=== PATIENT | male | born 1950 | race African-American/Black ===

== ENCOUNTER → 2022-08-29 14:44 | Outpatient (CLI) | payer OTHER, SELFPAY ==
--- NOTE | 2022-08-29 | DI.US.S_ITS ---
PROCEDURE: US ABDOMEN LIMITED INDICATIONS: elevated liver enzymes TECHNIQUE: Real-time focused scanning was performed of the abdomen, with image documentation. COMPARISON: None. FINDINGS: Liver is at the upper limits of normal in size, measuring 16.6 cm with steatosis. Dependent echogenicity is present within the gallbladder lumen. Wall thickness is variable ranging from 1 mm to 5 mm. There is no sonographic Lobo sign. Common bile duct measures 6 mm. IMPRESSION: Areas of echogenicity within the gallbladder consistent with small stones versus sludge. Wall thickening within portions of the gallbladder overall irregular. This is overall specific. While this could be related to developing cholecystitis, hepatic dysfunction can also contribute to appearance of wall thickening and recommend clinical correlation. Dictated by: Magnolia Segura M.D. on 08/29/2022 at 18:29 Approved by: Magnolia Segura M.D. on 08/29/2022 at 18:31
== END ==
PROVIDERS: PCP Family Medicine; Referring Provider Family Medicine; Visit Provider Family Medicine
DX: R74.01 Elevation of levels of liver transaminase levels (principal)
CPT/HCPCS: 76705

== ENCOUNTER → 2022-09-12 12:26 | Outpatient (CLI) | payer OTHER, SELFPAY ==
--- NOTE | 2022-09-12 12:33 | DI.RAD.S_ITS ---
PROCEDURE: XR CHEST 2V INDICATIONS: CHEST TECHNIQUE: 2 views of the chest were acquired. COMPARISON: None. FINDINGS: Surgical changes and devices: None. Lungs and pleura: Lungs are clear. No pleural effusions or pneumothorax. Mediastinum: Mediastinal contours are normal. Heart size is normal. Bones and chest wall: No suspicious bony abnormalities. Soft tissues appear unremarkable. IMPRESSION: No acute cardiopulmonary abnormality identified. Dictated by: Peter Pittman M.D. on 09/12/2022 at 13:46 Approved by: Peter Pittman M.D. on 09/12/2022 at 13:51
[2022-09-12 13:48] LABS: Add Manual Diff / Slide Review NO; Basophils Absolute Auto 100 /uL (0-100); Basophils Percent Auto 0.6 % (0-2); Eosinophils Absolute Auto 100 /uL (0-450); Eosinophils Percent Auto 0.6 % (2-4); Hematocrit 42.8 % (41-53); Hemoglobin 13.7 g/dL (13.5-17.5); Lymphocytes Absolute Auto 2900 /uL (1100-4500); Lymphocytes Percent Auto 27.8 % (25-40); Mean Corpuscular HGB Conc 32.2 % (30-36); Mean Corpuscular Volume 90.3 fL (80-100); Monocytes Absolute Auto 700 /uL (0-900); Monocytes Percent Auto 6.6 % (3-14); Neutrophils Absolute Auto 6700 /uL (1500-7000); Neutrophils Percent Auto 64.4 % (50-75); Platelet Count 150 X10^3/uL (150-400); Red Blood Cell Count 4.73 X10^6/uL (4.5-5.9); Red Cell Distribution Width 16.2 % (11.6-14.8); White Blood Cell Count 10.5 X10^3/uL (4.5-11.0)
[2022-09-12 14:13] LABS: Hemoglobin A1C% w Est Avg Glu 4.9 % (4.0-6.0)
[2022-09-12 14:19] LABS: Alanine Aminotransferase 25 IU/L (<50); Albumin 3.6 g/dL (3.5-5.0); Albumin Globulin Ratio 1.3 (1.0-2.8); Alkaline Phosphatase 104 U/L (38-126); Aspartate Aminotransferase 43 IU/L (17-59); BUN Creatinine Ratio 15.9 (6-22); Bilirubin Total 0.4 mg/dL (0.2-1.3); Blood Urea Nitrogen 13 mg/dL (9-20); Calcium 8.6 mg/dL (8.4-10.2); Carbon Dioxide 20 mmol/L (22-32); Chloride 104 mmol/L (98-107); Estimated Glomerular Filt Rate > 60 mL/min (>60); Globulin 2.7 g/dL (1.7-4.1); Glucose 92 mg/dL (80-110); HEMOLYSIS < 15 (0-50); Potassium 4.1 mmol/L (3.4-5.1); Sodium 139 mmol/L (137-145); Total Protein 6.3 g/dL (6.3-8.2)
[2022-09-12 14:37] LABS: Free T4, Direct Thyroxine 1.39 ng/dL (0.78-2.19)
== END ==
PROVIDERS: PCP Family Medicine; Referring Provider Family Medicine; Visit Provider Family Medicine
DX: I10 Essential (primary) hypertension (principal); E11.65 Type 2 diabetes mellitus with hyperglycemia; E78.00 Pure hypercholesterolemia, unspecified; Z79.899 Other long term (current) drug therapy
CPT/HCPCS: 36415; 71046; 80053; 83036; 84439; 84443; 85025

== ENCOUNTER 2022-11-16 14:05 | Inpatient (IN) | payer OTHER, SELFPAY ==
[2022-11-16] VITALS (30 sets, daily range): BP systolic 117–137; BP diastolic 87–108; PULSE 118–124; RESP 18–34; TEMP 36.2–36.4; O2SAT 93–99
--- NOTE | 2022-11-16 14:29 | DI.RAD.S_ITS ---
PROCEDURE: XR CHEST 1V INDICATIONS: suspected sepsis TECHNIQUE: One view of the chest was acquired. COMPARISON: [facility], CR, XR CHEST 2V, 09/12/2022, 12:46. FINDINGS: Surgical changes and devices: None. Lungs and pleura: Lungs are again seen to demonstrate bilateral interstitial prominence with possible lung base mild pneumonia but this pattern is little if any changed from 09/12/22 considering reduced inspiration on the current study.. No pleural effusions or pneumothorax. Mediastinum: Mediastinal contours appear normal. Heart size is normal. Bones and chest wall: No suspicious bony lesions. Overlying soft tissues appear unremarkable. IMPRESSION: Possible chronic CHF pattern with lung base atelectasis. Alternatively, chronic interstitial prominence with mild or early lung base pneumonia could explain the appearance. Dictated by: Israel Schreiber M.D. on 11/16/2022 at 15:42 Approved by: Israel Schreiber M.D. on 11/16/2022 at 15:43
[2022-11-16] MEDS: SODIUM CHLORIDE 0.9% 1,000 ML 1000 ML IV (14:52)
[2022-11-16 15:30] LABS: Influenza A - CEPHEID Flu A NEGATIVE (NEGATIVE); Influenza B - CEPHEID Flu B NEGATIVE (NEGATIVE); Respiratory Syncytial Virus Negative (Negative)
[2022-11-16 15:33] LABS: COVID-19 CEPHEID 4-PLEX PCR Negative (Negative)
--- NOTE | 2022-11-16 15:34 | PC.NURSE ---
Pt reports voiding every hour on the hour with dribbling and frequency. Pt abdomen is distended and tight to touch. BM's are liquid. Pt also reporting worsening SOB that began on .
[2022-11-16 15:51] LABS: Add Manual Diff / Slide Review NO; Basophils Absolute Auto 100 /uL (0-100); Basophils Percent Auto 1.3 % (0-2); Eosinophils Absolute Auto 100 /uL (0-450); Eosinophils Percent Auto 0.7 % (2-4); Hematocrit 45.9 % (41-53); Hemoglobin 14.6 g/dL (13.5-17.5); Lymphocytes Absolute Auto 2100 /uL (1100-4500); Lymphocytes Percent Auto 24.9 % (25-40); Mean Corpuscular HGB Conc 31.9 % (30-36); Mean Corpuscular Hemoglobin 28.5 PG (26-34); Mean Corpuscular Volume 89.4 fL (80-100); Monocytes Absolute Auto 800 /uL (0-900); Monocytes Percent Auto 9.9 % (3-14); Neutrophils Absolute Auto 5400 /uL (1500-7000); Neutrophils Percent Auto 63.2 % (50-75); Platelet Count 193 X10^3/uL (150-400); Red Blood Cell Count 5.13 X10^6/uL (4.5-5.9); Red Cell Distribution Width 18.3 % (11.6-14.8); White Blood Cell Count 8.6 X10^3/uL (4.5-11.0)
--- NOTE | 2022-11-16 16:01 | PC.NURSE ---
Pt reports not taking medications since early October. When asked why pt states, I don't know. When asked if he had any problems with finances he said, no. Provider aware.
[2022-11-16 16:06] LABS: Creatine Kinase 32 U/L (55-170); Lactate (Lactic Acid) 3.4 mmol/L (0.7-2.1)
[2022-11-16 16:08] LABS: Alanine Aminotransferase 27 IU/L (<50); Albumin 3.9 g/dL (3.5-5.0); Albumin Globulin Ratio 1.3 (1.0-2.8); Alkaline Phosphatase 97 U/L (38-126); Aspartate Aminotransferase 30 IU/L (17-59); Bilirubin Total 1.3 mg/dL (0.2-1.3); Blood Urea Nitrogen 18 mg/dL (9-20); Calcium 9.4 mg/dL (8.4-10.2); Carbon Dioxide 19 mmol/L (22-32); Chloride 106 mmol/L (98-107); Estimated Glomerular Filt Rate > 60 mL/min (>60); Globulin 2.9 g/dL (1.7-4.1); Glucose 112 mg/dL (80-110); HEMOLYSIS 17 (0-50); Lipase 71 U/L (23-300); Sodium 139 mmol/L (137-145); Total Protein 6.8 g/dL (6.3-8.2)
[2022-11-16 16:20] LABS: NT-proBNP (BNP-Adult 18+) 14600 pg/mL (<125); Troponin I 0.012 ng/mL (0.01-0.034)
[2022-11-16 16:24] LABS: Procalcitonin 0.06 ng/mL (<0.5)
[2022-11-16 16:59] LABS: INR 1.3 (0.9-1.3)
[2022-11-16 17:02] LABS: PTT Partial Thromboplastin Tim 30 SECONDS (26-36)
--- NOTE | 2022-11-16 17:07 | ED.SOB ---
HPI - SOB/Dyspnea General Chief Complaint: Shortness of Breath/Dyspnea Stated Complaint: SOB/dizzy/ t-14 getting worse Time Seen by Provider: 11/16/22 16:04 Source: patient Mode of arrival: Ambulatory Limitations: no limitations History of Present Illness HPI Narrative: Patient is a 72-year-old male who presents with increased difficulty breathing. He denies any history of congestive heart failure by on his current med list is Lasix 20 mg, tamsulosin and fluoxetine. He says over last few days he is had increasing shortness of breath with exertion. Denies any orthopnea. He denies any chest pain although says that he has heart palpitations and flip-flopping in his chest. He feels like his feet are swollen although I do not appreciate any obvious pitting edema. His heart rate is noted to be quite fast 120 pretty steady. He denies any fever chills or cough. He is not passed out. He is not been to this hospital before. Related Data Home Medications Medication Instructions Recorded Confirmed alprazolam 0.25 mg tablet 0.25 mg PO Q8HP PRN ##0 03/02/17 aspirin 81 mg tablet,delayed 81 mg PO QDAY ##0 03/02/17 release cyclobenzaprine 10 mg tablet 10 mg PO QDAY ##0 03/02/17 fluoxetine 40 mg capsule 20 mg PO QDAY ##0 03/02/17 gabapentin 300 mg capsule 300 mg PO TID ##0 03/02/17 (Neurontin) halobetasol propionate 0.05 % 1 russ TP ##0 03/02/17 topical ointment hydrochlorothiazide 25 mg tablet 25 mg PO QDAY ##0 03/02/17 losartan 50 mg tablet 50 mg PO QDAY ##0 03/02/17 metformin 500 mg tablet,extended 500 mg PO QDAY ##0 03/02/17 release 24 hr (Glucophage XR) metoprolol tartrate 50 mg tablet 50 mg PO QDAY ##0 03/02/17 miconazole nitrate 2 % topical 1 russ TP ##0 03/02/17 cream (Micatin) omeprazole 20 mg capsule,delayed 20 mg PO QDAY ##0 03/02/17 release oxycodone-acetaminophen 7.5 mg-325 1 tab PO Q4HP PRN ##0 03/02/17 mg tablet simvastatin 10 mg tablet 10 mg PO QDAY ##0 03/02/17 Allergies Allergy/AdvReac Type Severity Reaction Status Date / Time Penicillins Allergy Unknown Verified 11/16/22 14:27 Patient History Social History Smoking Status: Former smoker Smoking Status: Former smoker alcohol intake frequency: 0-2 drinks per day Substance Use Type: does not use Exam Initial Vital Signs Initial Vital Signs: Vital Signs Temperature 97.1 F L 11/16/22 14:20 Pulse Rate 124 H 11/16/22 14:20 Respiratory Rate 34 H 11/16/22 14:20 Blood Pressure 117/87 11/16/22 14:20 Pulse Oximetry 94 11/16/22 14:20 Oxygen Delivery Method 11/16/22 14:20 GENERAL: Alert very pleasant 72-year-old male and in no acute distress. HEENT: Head atraumatic,EOMI, pupils reactive, face symmetric, moist mucous membranes CARDIOVASCULAR: Regular tachycardic no murmur RESPIRATORY: Breath sounds equal bilaterally, no wheezes rales or rhonchi. ABDOMEN: Soft, nontender. Normoactive bowel sounds all 4 quadrants. No guarding or rebound. EXTREMITIES: Normal range of motion, no clubbing or edema. Neurovascularly intact NEUROLOGICAL: Alert and oriented x4. SKIN: Warm, dry, no laceration, no petechiae, no rashes or lesions. Course Orders Ordered: ED Orders 11/16/22 14:29 XR chest 1V Stat RT Consult Eval and Treat NOW 11/16/22 14:43 EKG-12 Lead Stat 11/16/22 14:48 Covid-19 + FLU A/B + RSV - PCR Stat 11/16/22 15:16 COVID19 -Nasal RAPID/Pre-Proc Stat 11/16/22 15:36 BNP [NT-proBNP (BNP-Adult 18+)] Stat Complete Blood Count AUTO DIFF Stat Comprehensive Metabolic Panel Stat Lactate (Lactic Acid) Stat Lipase Stat Partial Thromboplastin Time Stat Procalcitonin Stat Prothrombin Time INR Stat Troponin & CK Cardiac Panel Stat 11/16/22 15:45 Blood Culture Stat 11/16/22 16:13 Ictotest Urine Stat Urine Culture Stat Urine Microscopic Stat Ondansetron HCl (Ondansetron 4 Mg/2 Ml Inj) 4 mg IV NOW PRN PRN Reason: Nausea And Vomiting Ondansetron HCl (Ondansetron 4 Mg Odt) 4 mg SL NOW PRN PRN Reason: Nausea And Vomiting Discontinued Medications Furosemide (Furosemide 40 Mg/4 Ml Vial) 20 mg IV NOW ONE Stop: 11/16/22 17:09 Last Admin: 11/16/22 17:22 Dose: 20 mg Documented By: SELENA Sodium Chloride (Normal Saline 0.9%) 1,000 mls @ 1,000 mls/hr IV BOLUS ONE Stop: 11/16/22 15:28 Last Infusion: 11/16/22 16:32 Dose: 0 mls/hr Documented By: Admin: 11/16/22 14:52 Dose: 1,000 mls/hr Documented By: FIORELLA Metoprolol Tartrate (Metoprolol Tartrate 5 Mg/5 Ml Inj) 5 mg IV NOW ONE Stop: 11/16/22 17:08 Last Admin: 11/16/22 17:22 Dose: 5 mg Documented By: SELENA Vital Signs Vital signs: Vital Signs - 8 hr 11/16/22 14:20 11/16/22 14:40 11/16/22 15:10 Temperature 97.1 F L Pulse Rate 124 H 122 H 120 H Respiratory Rate 34 H Blood Pressure 117/87 Pulse Oximetry 94 96 97 Oxygen Delivery Method Room Air Room Air Room Air 11/16/22 15:15 11/16/22 15:50 11/16/22 16:00 Temperature Pulse Rate 121 H 122 H 122 H Respiratory Rate Blood Pressure 133/97 H Pulse Oximetry 98 99 98 Oxygen Delivery Method Room Air Room Air 11/16/22 14:45 11/16/22 14:50 11/16/22 14:55 Temperature Pulse Rate 120 H 120 H 120 H Respiratory Rate Blood Pressure Pulse Oximetry 97 98 99 Oxygen Delivery Method Room Air Room Air Room Air 11/16/22 15:00 11/16/22 15:05 11/16/22 15:25 Temperature Pulse Rate 120 H 120 H 122 H Respiratory Rate Blood Pressure Pulse Oximetry 99 98 98 Oxygen Delivery Method Room Air Room Air 11/16/22 16:10 11/16/22 16:20 11/16/22 16:44 Temperature Pulse Rate 124 H 122 H Respiratory Rate Blood Pressure 137/106 H Pulse Oximetry 97 96 Oxygen Delivery Method Room Air Room Air 11/16/22 16:44 11/16/22 17:00 11/16/22 17:03 Temperature Pulse Rate 122 H 121 H 121 H Respiratory Rate 30 H 25 H 25 H Blood Pressure Pulse Oximetry 98 99 98 Oxygen Delivery Method Room Air Room Air Room Air 11/16/22 17:03 11/16/22 17:30 11/16/22 17:31 Temperature Pulse Rate 120 H 120 H Respiratory Rate 21 24 Blood Pressure 132/108 H Pulse Oximetry 97 97 Oxygen Delivery Method Room Air Room Air 11/16/22 17:31 11/16/22 18:27 11/16/22 18:30 Temperature Pulse Rate 120 H 120 H Respiratory Rate 24 Blood Pressure 123/99 H Pulse Oximetry Oxygen Delivery Method 11/16/22 18:52 11/16/22 18:52 11/16/22 19:00 Temperature Pulse Rate 120 H Respiratory Rate 24 Blood Pressure 134/94 H 133/106 H Pulse Oximetry 99 Oxygen Delivery Method Room Air 11/16/22 19:00 11/16/22 19:30 11/16/22 19:34 Temperature Pulse Rate 118 H 119 H 119 H Respiratory Rate 20 20 18 Blood Pressure Pulse Oximetry 98 97 96 Oxygen Delivery Method Room Air Room Air Room Air 11/16/22 19:34 11/16/22 20:00 Temperature Pulse Rate 120 H Respiratory Rate Blood Pressure 122/98 H Pulse Oximetry 99 Oxygen Delivery Method Room Air MDM - SOB/Dyspnea Lab Data Result diagrams: 11/16/22 15:36 11/16/22 15:36 Labs: Lab Results 11/16/22 11/16/22 11/16/22 Range/Units 14:48 15:36 15:36 WBC 8.6 (4.5-11.0) X10^3/uL RBC 5.13 (4.5-5.9) X10^6/uL Hgb 14.6 (13.5-17.5) g/dL Hct 45.9 (41-53) % MCV 89.4 (80-100) fL MCH 28.5 (26-34) PG MCHC 31.9 (30-36) % RDW 18.3 H (11.6-14.8) % Plt Count 193 (150-400) X10^3/uL Neut % (Auto) 63.2 (50-75) % Lymph % (Auto) 24.9 L (25-40) % [place] % (Auto) 9.9 (3-14) % Eos % (Auto) 0.7 L (2-4) % Baso % (Auto) 1.3 (0-2) % Neut # (Auto) 5400 (0524-8942) /uL Lymph # (Auto) 2100 (9752-0839) /uL [place] # (Auto) 800 (0-900) /uL Eos # (Auto) 100 (0-450) /uL Baso # (Auto) 100 (0-100) /uL PT 15.0 H (10.1-12.7) SECONDS INR 1.3 (0.9-1.3) APTT 30 (26-36) SECONDS Sodium (137-145) mmol/L Potassium (3.4-5.1) mmol/L Chloride (98-107) mmol/L Carbon Dioxide (22-32) mmol/L BUN (9-20) mg/dL Creatinine (0.66-1.25) mg/dL Estimated GFR (>60) mL/min BUN/Creatinine Ratio (6-22) Glucose (80-110) mg/dL Lactate (0.7-2.1) mmol/L Calcium (8.4-10.2) mg/dL Total Bilirubin (0.2-1.3) mg/dL AST (17-59) IU/L ALT (<50) IU/L Alkaline Phosphatase (38-126) U/L Total Creatine Kinase (55-170) U/L CK-MB (CK-2) CK-MB (CK-2) Rel Index Troponin I (0.01-0.034) ng/mL NT-Pro-B Natriuret Pep (<125) pg/mL Total Protein (6.3-8.2) g/dL Albumin (3.5-5.0) g/dL Globulin (1.7-4.1) g/dL Albumin/Globulin Ratio (1.0-2.8) Lipase (23-300) U/L Procalcitonin (<0.5) ng/mL Ur Bilirubin Confirm (Negative) Urine RBC (0-5/HPF) Urine WBC (0-5/HPF) Urine Bacteria (None) Hyaline Casts (None) Urine Mucus (Negative) SARS-CoV-2 (PCR) Negative (Negative) Influenza A (RT-PCR) Flu a negative (NEGATIVE) Influenza B (RT-PCR) Flu b negative (NEGATIVE) RSV (PCR) Negative (Negative) 11/16/22 11/16/22 11/16/22 Range/Units 15:36 15:36 15:36 WBC (4.5-11.0) X10^3/uL RBC (4.5-5.9) X10^6/uL Hgb (13.5-17.5) g/dL Hct (41-53) % MCV (80-100) fL MCH (26-34) PG MCHC (30-36) % RDW (11.6-14.8) % Plt Count (150-400) X10^3/uL Neut % (Auto) (50-75) % Lymph % (Auto) (25-40) % [place] % (Auto) (3-14) % Eos % (Auto) (2-4) % Baso % (Auto) (0-2) % Neut # (Auto) (2505-6614) /uL Lymph # (Auto) (8333-4426) /uL [place] # (Auto) (0-900) /uL Eos # (Auto) (0-450) /uL Baso # (Auto) (0-100) /uL PT (10.1-12.7) SECONDS INR (0.9-1.3) APTT (26-36) SECONDS Sodium 139 (137-145) mmol/L Potassium 4.0 (3.4-5.1) mmol/L Chloride 106 (98-107) mmol/L Carbon Dioxide 19 L (22-32) mmol/L BUN 18 (9-20) mg/dL Creatinine 0.72 (0.66-1.25) mg/dL Estimated GFR > 60 (>60) mL/min BUN/Creatinine Ratio 25.0 H (6-22) Glucose 112 H (80-110) mg/dL Lactate 3.4 H (0.7-2.1) mmol/L Calcium 9.4 (8.4-10.2) mg/dL Total Bilirubin 1.3 (0.2-1.3) mg/dL AST 30 (17-59) IU/L ALT 27 (<50) IU/L Alkaline Phosphatase 97 (38-126) U/L Total Creatine Kinase 32 L (55-170) U/L CK-MB (CK-2) TNP CK-MB (CK-2) Rel Index TNP Troponin I 0.012 (0.01-0.034) ng/mL NT-Pro-B Natriuret Pep 72716 H (<125) pg/mL Total Protein 6.8 (6.3-8.2) g/dL Albumin 3.9 (3.5-5.0) g/dL Globulin 2.9 (1.7-4.1) g/dL Albumin/Globulin Ratio 1.3 (1.0-2.8) Lipase 71 (23-300) U/L Procalcitonin 0.06 (<0.5) ng/mL Ur Bilirubin Confirm (Negative) Urine RBC (0-5/HPF) Urine WBC (0-5/HPF) Urine Bacteria (None) Hyaline Casts (None) Urine Mucus (Negative) SARS-CoV-2 (PCR) (Negative) Influenza A (RT-PCR) (NEGATIVE) Influenza B (RT-PCR) (NEGATIVE) RSV (PCR) (Negative) 11/16/22 11/16/22 11/16/22 Range/Units 16:13 16:13 17:45 WBC (4.5-11.0) X10^3/uL RBC (4.5-5.9) X10^6/uL Hgb (13.5-17.5) g/dL Hct (41-53) % MCV (80-100) fL MCH (26-34) PG MCHC (30-36) % RDW (11.6-14.8) % Plt Count (150-400) X10^3/uL Neut % (Auto) (50-75) % Lymph % (Auto) (25-40) % [place] % (Auto) (3-14) % Eos % (Auto) (2-4) % Baso % (Auto) (0-2) % Neut # (Auto) (6376-8805) /uL Lymph # (Auto) (0251-5505) /uL [place] # (Auto) (0-900) /uL Eos # (Auto) (0-450) /uL Baso # (Auto) (0-100) /uL PT (10.1-12.7) SECONDS INR (0.9-1.3) APTT (26-36) SECONDS Sodium (137-145) mmol/L Potassium (3.4-5.1) mmol/L Chloride (98-107) mmol/L Carbon Dioxide (22-32) mmol/L BUN (9-20) mg/dL Creatinine (0.66-1.25) mg/dL Estimated GFR (>60) mL/min BUN/Creatinine Ratio (6-22) Glucose (80-110) mg/dL Lactate 3.2 H (0.7-2.1) mmol/L Calcium (8.4-10.2) mg/dL Total Bilirubin (0.2-1.3) mg/dL AST (17-59) IU/L ALT (<50) IU/L Alkaline Phosphatase (38-126) U/L Total Creatine Kinase (55-170) U/L CK-MB (CK-2) CK-MB (CK-2) Rel Index Troponin I (0.01-0.034) ng/mL NT-Pro-B Natriuret Pep (<125) pg/mL Total Protein (6.3-8.2) g/dL Albumin (3.5-5.0) g/dL Globulin (1.7-4.1) g/dL Albumin/Globulin Ratio (1.0-2.8) Lipase (23-300) U/L Procalcitonin (<0.5) ng/mL Ur Bilirubin Confirm Negative (Negative) Urine RBC 0-1/hpf (0-5/HPF) Urine WBC 0-1/hpf (0-5/HPF) Urine Bacteria None seen (None) Hyaline Casts 1-5/lpf (None) Urine Mucus 1+ H (Negative) SARS-CoV-2 (PCR) (Negative) Influenza A (RT-PCR) (NEGATIVE) Influenza B (RT-PCR) (NEGATIVE) RSV (PCR) (Negative) Urine Dip Bedside Urine Glucose Negative Bedside Urine Bilirubin + 1 Bedside Urine Ketone - Negative Urine Specific [place] 1.030 Bedside Urine Occult Blood ++ Bedside Urine pH 5.5 Bedside Urine Protein +++ 300 Bedside Urine Urobilinogen - Negative Bedside Urine Nitrite - Negative Bedside Urine Leukocytes - Negative Esterase Imaging Data Chest x-ray: Radiologist's Impression: Signed Patient: Dustin Tatum MR#: [id number] : 1950 Acct:[id number] Age/Sex: 72 / M Date of Service: 11/16/22 Loc: ED Accession Number: [id number] ?? Procedure: XR chest 1V Ordering Provider: Vandana Casillas D.O. PROCEDURE:? XR CHEST 1V ? INDICATIONS:? suspected sepsis ? TECHNIQUE:? One view of the chest was acquired.? ? COMPARISON:? [facility], CR, XR CHEST 2V, 09/12/2022, 12:46. ? FINDINGS:? ? Surgical changes and devices:? None.? ? Lungs and pleura:? Lungs are again seen to demonstrate bilateral interstitial prominence with possible lung base mild pneumonia but this pattern is little if any changed from 09/12/22 considering reduced inspiration on the current study..? No pleural effusions or pneumothorax.? ? Mediastinum:? Mediastinal contours appear normal.? Heart size is normal.? ? Bones and chest wall:? No suspicious bony lesions.? Overlying soft tissues appear unremarkable.? ? IMPRESSION:? Possible chronic CHF pattern with lung base atelectasis.? Alternatively, chronic interstitial prominence with mild or early lung base pneumonia could explain the appearance. ? ? Dictated by: Israel Schreiber M.D. on 11/16/2022 at 15:42 ? ? ECG Data Interpretation: EKG 1. Atrial flutter rate 122not sinus do not agree with computer reading rate 122 TX interval 286 QRS 88 QTC 433 EKG 2. Atrial flutter rate [address] changes MDM Narrative Medical decision making narrative: Patient presenting with increasing shortness of breath found to have pretty consistent heart rate in the 120s probable atrial flutter. He was given 1 dose of metoprolol which she did not really respond to. Cardizem was held secondary to acute congestive heart failure. BNP is elevated at 14 600. He is given a dose of Lasix as well. He shows no sign of infection no fever chills or cough. Chest x-ray shows vascular congestion without consolidation. Procalcitonin 0.06 however lactic acid is elevated at 3.4. COVID influenza and RSV panel are negative. I suspect his lactic acid is elevated due to congestive heart failure and persistent tachycardia. He antibiotics not given he is not had fever or infectious symptoms. Blood cultures and urine culture pending. Dr. Peace updated on patient's symptoms test results and accepts patient. Discharge Plan Departure Patient Disposition: Admitted As Inpatient Clinical Impression: Congestive heart failure, Atrial flutter with rapid ventricular response Admit Date/Time: 11/16/22 20:00 Admit Provider: Stevie Peace
[2022-11-16] MEDS: METOPROLOL TARTRATE 5 MG/5 ML INJ IV (17:22)
[2022-11-16] MEDS: FUROSEMIDE 40 MG/4 ML VIAL 20 MG IV (17:22)
[2022-11-16 17:38] LABS: Ictotest Urine Negative (Negative)
[2022-11-16 17:39] LABS: Bacteria Urine None Seen; Hyaline Casts Urine 1-5/LPF; Mucus Urine 1+ (Negative); RBC Urine 0-1/HPF (0-5/HPF); WBC Urine 0-1/HPF (0-5/HPF)
[2022-11-16 17:45] LABS: Reflexed Lactate in 2 Hours Y
[2022-11-16 18:00] LABS: Lactate 2HR (Lactic Acid Rflx) 3.2 mmol/L (0.7-2.1)
[2022-11-16 20:32] LABS: Troponin I < 0.012 ng/mL (0.01-0.034)
[2022-11-16 21:00] LABS: Magnesium 1.7 mg/dL (1.6-2.3)
[2022-11-16] MEDS: METOPROLOL IR 25 MG TABLET 12.5 MG PO (21:11)
[2022-11-16 21:31] LABS: Thyroid Stimulating Hormone 1.54 uIU/mL (0.47-4.68)
--- NOTE | 2022-11-16 22:27 | P.HP_ITS ---
History of Present Illness History of Present Illness Chief complaint: SOB/dizzy/ t-14 getting worse Narrative: Dustin Tatum is a 72-year-old male who presents to the ER with a history of troubles breathing since November 05. Unknown as to why he did not seek attention prior to. He has no cough or fever or chills. He is had swelling in his lower extremities for the past 2-3 months and apparently has been referred to [employer] rep and will see him or her in December of this year. He denies cough, sore throat, nausea or vomiting, he states his appetite has been diminished, he states that he is had a little bit of diarrhea but no constipation, and has numbing and tingling of his hands and feet which has been for several months. He states that he was diabetic and taking metformin but that he was taken off of it because his A1c went into the low 5s. X-ray done in the emergency department indicated likely chronic CHF with lung base atelectasis with possible early lung base pneumonia. He is afebrile, blood pressure 134/106 heart rate 118 respiratory rate 22 oxygen saturation of 96% on room air. He did desaturate in the room while speaking to him into the 70s and 80s. CBC was unremarkable, serum bicarb was 19 glucose 112 lactate is 3.2 down from 3.4 thought to be from his rapid heart rate[place] [address], TSH is normal UA is also normal and COVID-19 PCR is negative. FH: Family history field not functioning. Mother in her 80s of an [place], father in his late 80s likely cardiac arrest, son in his early 40s with diabetes. Patient has an adult daughter no health problems stated and a sister age 75 stated she had multiple health problems but not specific. Patient History Medical History (Updated 11/16/22 @ 22:30 by MCKENNA Quinteros) Cervical sprain (01/21/03) Essential hypertension (01/21/03) Routine medical exam (03/19/03) Surgical History (Updated 11/16/22 @ 22:44 by MCKENNA Quinteros) H/O vasectomy Family & Social History Family history unavailable: No (See comment above.) Safety & Behavioral: Feels Safe in Current Yes Environment Been Physically Hurt or No Threatened By a Person Tobacco & Substance use: Smoking Status Former smoker alcohol intake frequency 0-2 drinks per day Substance Use Type does not use Meds Home Medications and Allergies Home Medications Medication Instructions Recorded Confirmed Type alprazolam 0.25 mg tablet 0.25 mg PO Q8HP PRN ##0 03/02/17 History aspirin 81 mg tablet,delayed 81 mg PO QDAY ##0 03/02/17 History release cyclobenzaprine 10 mg tablet 10 mg PO QDAY ##0 03/02/17 History fluoxetine 40 mg capsule 20 mg PO QDAY ##0 03/02/17 History gabapentin 300 mg capsule 300 mg PO TID ##0 03/02/17 History (Neurontin) halobetasol propionate 0.05 % 1 russ TP ##0 03/02/17 History topical ointment hydrochlorothiazide 25 mg tablet 25 mg PO QDAY ##0 03/02/17 History losartan 50 mg tablet 50 mg PO QDAY ##0 03/02/17 History metformin 500 mg tablet,extended 500 mg PO QDAY ##0 03/02/17 History release 24 hr (Glucophage XR) metoprolol tartrate 50 mg tablet 50 mg PO QDAY ##0 03/02/17 History miconazole nitrate 2 % topical 1 russ TP ##0 03/02/17 History cream (Micatin) omeprazole 20 mg capsule,delayed 20 mg PO QDAY ##0 03/02/17 History release oxycodone-acetaminophen 7.5 mg-325 1 tab PO Q4HP PRN ##0 03/02/17 History mg tablet simvastatin 10 mg tablet 10 mg PO QDAY ##0 03/02/17 History Allergies Allergy/AdvReac Type Severity Reaction Status Date / Time Penicillins Allergy Unknown Verified 11/16/22 14:27 Review of Systems Review of Systems ROS: Yes All systems reviewed with the patient and are negative except as otherwise documented Exam Vital Signs (past 8 hours): - 11/16/22 14:40 11/16/22 15:10 11/16/22 15:15 Pulse Rate 122 H 120 H 121 H Respiratory Rate Blood Pressure Pulse Oximetry 96 97 98 Oxygen Delivery Method Room Air Room Air 11/16/22 15:50 11/16/22 16:00 11/16/22 14:45 Pulse Rate 122 H 122 H 120 H Respiratory Rate Blood Pressure 133/97 H Pulse Oximetry 99 98 97 Oxygen Delivery Method Room Air Room Air Room Air 11/16/22 14:50 11/16/22 14:55 11/16/22 15:00 Pulse Rate 120 H 120 H 120 H Respiratory Rate Blood Pressure Pulse Oximetry 98 99 99 Oxygen Delivery Method Room Air Room Air 11/16/22 15:05 11/16/22 15:25 11/16/22 16:10 Pulse Rate 120 H 122 H 124 H Respiratory Rate Blood Pressure Pulse Oximetry 98 98 97 Oxygen Delivery Method Room Air Room Air Room Air 11/16/22 16:20 11/16/22 16:44 11/16/22 16:44 Pulse Rate 122 H 122 H Respiratory Rate 30 H Blood Pressure 137/106 H Pulse Oximetry 96 98 Oxygen Delivery Method Room Air Room Air 11/16/22 17:00 11/16/22 17:03 11/16/22 17:03 Pulse Rate 121 H 121 H Respiratory Rate 25 H 25 H Blood Pressure 132/108 H Pulse Oximetry 99 98 Oxygen Delivery Method Room Air Room Air 11/16/22 17:30 11/16/22 17:31 11/16/22 17:31 Pulse Rate 120 H 120 H Respiratory Rate 21 24 Blood Pressure 123/99 H Pulse Oximetry 97 97 Oxygen Delivery Method Room Air Room Air 11/16/22 18:27 11/16/22 18:30 11/16/22 18:52 Pulse Rate 120 H 120 H 120 H Respiratory Rate 24 24 Blood Pressure Pulse Oximetry 99 Oxygen Delivery Method Room Air 11/16/22 18:52 11/16/22 19:00 11/16/22 19:00 Pulse Rate 118 H Respiratory Rate 20 Blood Pressure 134/94 H 133/106 H Pulse Oximetry 98 Oxygen Delivery Method Room Air 11/16/22 19:30 11/16/22 19:34 11/16/22 19:34 Pulse Rate 119 H 119 H Respiratory Rate 20 18 Blood Pressure 122/98 H Pulse Oximetry 97 96 Oxygen Delivery Method Room Air Room Air 11/16/22 20:00 11/16/22 20:30 11/16/22 20:36 Pulse Rate 120 H 119 H 119 H Respiratory Rate 22 24 Blood Pressure Pulse Oximetry 99 94 97 Oxygen Delivery Method Room Air Room Air Room Air 11/16/22 20:36 11/16/22 21:00 Pulse Rate 118 H Respiratory Rate 22 Blood Pressure 129/95 H 134/106 H Pulse Oximetry 96 Oxygen Delivery Method Room Air Oxygen Delivery Method Room Air Narrative Exam Narrative: Gen: Alert, oriented, ill appearing 72 y.o. -[place] male male, NAD HEENT: normocephalic, atraumatic, conjunctiva clear, sclera non-icteric, oral mucosa pink and moist Neck: supple, full ROM, no JVD, trachea is midline Resp: Lungs CTA, non-labored breathing CV: RRR, no murmur or rubs Abd: soft, non-tender, normoactive BTs Skin: no lesions or rashes, dry and intact Neuro: Alert and oriented X 4 w/no focal deficits. Speech clear and coherent. Extremities: moves all 4 extremities, is ambulatory, negative Lane?s sign Psyche: normal mood and affect. Objective Labs Result Diagrams: 11/16/22 15:36 11/16/22 15:36 Labs: Laboratory Results - last 24 hr 11/16/22 11/16/22 11/16/22 14:48 15:36 15:36 WBC 8.6 RBC 5.13 Hgb 14.6 Hct 45.9 MCV 89.4 MCH 28.5 MCHC 31.9 RDW 18.3 H Plt Count 193 Neut % (Auto) 63.2 Lymph % (Auto) 24.9 L [place] % (Auto) 9.9 Eos % (Auto) 0.7 L Baso % (Auto) 1.3 Neut # (Auto) 5400 Lymph # (Auto) 2100 [place] # (Auto) 800 Eos # (Auto) 100 Baso # (Auto) 100 PT 15.0 H INR 1.3 APTT 30 Sodium Potassium Chloride Carbon Dioxide BUN Creatinine Estimated GFR BUN/Creatinine Ratio Glucose Lactate Calcium Magnesium Total Bilirubin AST ALT Alkaline Phosphatase Total Creatine Kinase CK-MB (CK-2) CK-MB (CK-2) Rel Index Troponin I NT-Pro-B Natriuret Pep Total Protein Albumin Globulin Albumin/Globulin Ratio Lipase Procalcitonin TSH Ur Bilirubin Confirm Urine RBC Urine WBC Urine Bacteria Hyaline Casts Urine Mucus SARS-CoV-2 (PCR) Negative Influenza A (RT-PCR) Flu a negative Influenza B (RT-PCR) Flu b negative RSV (PCR) Negative 11/16/22 11/16/22 11/16/22 15:36 15:36 15:36 WBC RBC Hgb Hct MCV MCH MCHC RDW Plt Count Neut % (Auto) Lymph % (Auto) [place] % (Auto) Eos % (Auto) Baso % (Auto) Neut # (Auto) Lymph # (Auto) [place] # (Auto) Eos # (Auto) Baso # (Auto) PT INR APTT Sodium 139 Potassium 4.0 Chloride 106 Carbon Dioxide 19 L BUN 18 Creatinine 0.72 Estimated GFR > 60 BUN/Creatinine Ratio 25.0 H Glucose 112 H Lactate 3.4 H Calcium 9.4 Magnesium Total Bilirubin 1.3 AST 30 ALT 27 Alkaline Phosphatase 97 Total Creatine Kinase 32 L CK-MB (CK-2) TNP CK-MB (CK-2) Rel Index TNP Troponin I 0.012 NT-Pro-B Natriuret Pep 92578 H Total Protein 6.8 Albumin 3.9 Globulin 2.9 Albumin/Globulin Ratio 1.3 Lipase 71 Procalcitonin 0.06 TSH Ur Bilirubin Confirm Urine RBC Urine WBC Urine Bacteria Hyaline Casts Urine Mucus SARS-CoV-2 (PCR) Influenza A (RT-PCR) Influenza B (RT-PCR) RSV (PCR) 11/16/22 11/16/22 11/16/22 16:13 16:13 17:45 WBC RBC Hgb Hct MCV MCH MCHC RDW Plt Count Neut % (Auto) Lymph % (Auto) [place] % (Auto) Eos % (Auto) Baso % (Auto) Neut # (Auto) Lymph # (Auto) [place] # (Auto) Eos # (Auto) Baso # (Auto) PT INR APTT Sodium Potassium Chloride Carbon Dioxide BUN Creatinine Estimated GFR BUN/Creatinine Ratio Glucose Lactate 3.2 H Calcium Magnesium Total Bilirubin AST ALT Alkaline Phosphatase Total Creatine Kinase CK-MB (CK-2) CK-MB (CK-2) Rel Index Troponin I NT-Pro-B Natriuret Pep Total Protein Albumin Globulin Albumin/Globulin Ratio Lipase Procalcitonin TSH Ur Bilirubin Confirm Negative Urine RBC 0-1/hpf Urine WBC 0-1/hpf Urine Bacteria None seen Hyaline Casts 1-5/lpf Urine Mucus 1+ H SARS-CoV-2 (PCR) Influenza A (RT-PCR) Influenza B (RT-PCR) RSV (PCR) 11/16/22 11/16/22 11/16/22 19:35 19:35 19:35 WBC RBC Hgb Hct MCV MCH MCHC RDW Plt Count Neut % (Auto) Lymph % (Auto) [place] % (Auto) Eos % (Auto) Baso % (Auto) Neut # (Auto) Lymph # (Auto) [place] # (Auto) Eos # (Auto) Baso # (Auto) PT INR APTT Sodium Potassium Chloride Carbon Dioxide BUN Creatinine Estimated GFR BUN/Creatinine Ratio Glucose Lactate Calcium Magnesium 1.7 Total Bilirubin AST ALT Alkaline Phosphatase Total Creatine Kinase CK-MB (CK-2) CK-MB (CK-2) Rel Index Troponin I < 0.012 NT-Pro-B Natriuret Pep Total Protein Albumin Globulin Albumin/Globulin Ratio Lipase Procalcitonin TSH 1.54 Ur Bilirubin Confirm Urine RBC Urine WBC Urine Bacteria Hyaline Casts Urine Mucus SARS-CoV-2 (PCR) Influenza A (RT-PCR) Influenza B (RT-PCR) RSV (PCR) Assessment & Plan Assessment & Plan narrative: Dustin Tatum is admitted as an inpatient for likely initial CHF exacerbation and for further workup CHF exacerbation, acute, present on admission * Patient's high BNP would lead me to believe he is currently experiencing a CHF exacerbation * Complete echo is ordered for tomorrow * Recommend obtaining records from his PCP in the morning for historical review of medications he has been on for hypertension * Start ASA 81 mg * Telemetry and supplemental O2 ordered Atrial flutter seen on EKG * Patient has a rapid heart rate of 122 and appears to have a mild saw tooth pattern to his EKG in my interpretation Essential hypertension, appears to be well controlled * Reviewed patient's med list any new only takes losartan 50 mg p.o. b.i.d., previously took amlodipine 10 mg but does not appear to be taking that at the moment, also previously took metoprolol currently not taking * He has been written to resume losartan and his previous dose of metoprolol. He did receive 1 dose of IV metoprolol 5 mg in the ED. History of diabetes type 2, appears to be inactive * I have ordered an A1c to confirm as his glucose was mildly elevated at 112 Other independent historians: none Discussion of results, plan of care with independent HCP/other day hospitalist team Reviewed outside records: ordered VTE Prophylaxis: Wells risk score 4.5 Enoxaparin 40 mg subQ once daily Bilateral SCDs Patient is admitted to the inpatient service due to the severity of disease, risks of further disease progression and this stay is expected to exceed 2 midnights. FEN: IV fluids: saline lock, diet: low sodium heart healthy, labs: CBC, C/BMP, liver enzymes, Mag, PT/INR Consultants None Dispo: admission to Medical, likely d/c to home Code status: Full code as discussed with the patient who identifies his daughter and son as his surrogate and POA. [X] I have utilized all available immediate resources to obtain, update, or review of the patient's current medications VTE Deep Vein Thrombosis/Pulmonary Embolism Present on Admission: No MIPS - Admit I confirm the patient?s Advance Care Plan is present, Code status is documented, Surrogate decision maker is in patient?s record: Yes MIPS - DC The patient has current or prior documentation of left ventricular ejection fraction (LVEF) less than 40%, or moderate or severely depressed left ventricular systolic function.: No Scores Wells' Criteria for PE Clinical signs and symptoms of DVT: No PE is #1 Dx or equally likely: Yes Heart rate > 100: Yes Immobilization at least 3 days or surg in previous 4 weeks: No History of PE or DVT: No Hemoptysis: No Malignancy w/Treatment within 6 months or palliative: No Wells' PE Score total: 4.5
[2022-11-17 00:45] VITALS: BMI 76.8
[2022-11-17 03:00] VITALS: BP 99/77; PULSE 110; RESP 20; TEMP 36.6; O2SAT 100
[2022-11-17 04:02] LABS: Add Manual Diff / Slide Review NO; Basophils Absolute Auto 100 /uL (0-100); Basophils Percent Auto 0.9 % (0-2); Eosinophils Absolute Auto 0 /uL (0-450); Eosinophils Percent Auto 0.5 % (2-4); Hematocrit 41.9 % (41-53); Hemoglobin 13.7 g/dL (13.5-17.5); Lymphocytes Absolute Auto 2100 /uL (1100-4500); Lymphocytes Percent Auto 22.4 % (25-40); Mean Corpuscular HGB Conc 32.7 % (30-36); Mean Corpuscular Hemoglobin 29.1 PG (26-34); Mean Corpuscular Volume 88.8 fL (80-100); Monocytes Absolute Auto 1000 /uL (0-900); Monocytes Percent Auto 10.5 % (3-14); Neutrophils Absolute Auto 6200 /uL (1500-7000); Neutrophils Percent Auto 65.7 % (50-75); Platelet Count 170 X10^3/uL (150-400); Red Blood Cell Count 4.71 X10^6/uL (4.5-5.9); Red Cell Distribution Width 18.3 % (11.6-14.8); White Blood Cell Count 9.4 X10^3/uL (4.5-11.0)
[2022-11-17 04:10] LABS: Alanine Aminotransferase 26 IU/L (<50); Albumin 3.6 g/dL (3.5-5.0); Albumin Globulin Ratio 1.3 (1.0-2.8); Alkaline Phosphatase 84 U/L (38-126); Aspartate Aminotransferase 32 IU/L (17-59); BUN Creatinine Ratio 21.7 (6-22); Bilirubin Total 1.4 mg/dL (0.2-1.3); Blood Urea Nitrogen 20 mg/dL (9-20); Carbon Dioxide 23 mmol/L (22-32); Chloride 107 mmol/L (98-107); Estimated Glomerular Filt Rate > 60 mL/min (>60); Globulin 2.8 g/dL (1.7-4.1); Glucose 119 mg/dL (80-110); HEMOLYSIS < 15 (0-50); Potassium 4.7 mmol/L (3.4-5.1); Sodium 142 mmol/L (137-145); Total Protein 6.4 g/dL (6.3-8.2)
[2022-11-17] MEDS: ACETAMINOPHEN 325 MG TABLET 650 MG PO ×2 (06:12→20:20)
[2022-11-17 06:55] VITALS: O2SAT 98
[2022-11-17 08:40] VITALS: BP 117/88; PULSE 118; RESP 22; TEMP 36.3; O2SAT 98
[2022-11-17] MEDS: ENOXAPARIN 40 MG/0.4 ML SYRINGE SUBCUT (08:53)
[2022-11-17] MEDS: ASPIRIN EC 81 MG TABLET PO (08:53)
[2022-11-17] MEDS: METOPROLOL IR 25 MG TABLET 12.5 MG PO ×2 (08:53→20:20)
[2022-11-17 09:37] VITALS: BMI 34.9
--- NOTE | 2022-11-17 10:58 | P.PN_ITS ---
Subjective Subjective Interval history: Dustin Cherry is a 72-year-old male who presents to the ER with a history of troubles breathing since November 05. X-ray done in the emergency department indicated likely chronic CHF with lung base atelectasis with possible early lung base pneumonia. No current antibiot ic. Admitted for congestive heart failure exacerbation treatment. A complaining of fever chills nausea vomiting or diaphoresis. Shortness of breath has improved but still significantly present. However patient does feels more comfortable. No cough or wheezing. No abdominal pain constipation or diarrhea. Normal movement of all extremities. Exam Vital Signs (past 8 hours): - 11/17/22 03:00 11/17/22 08:04 11/17/22 08:40 Temperature 97.8 F 97.4 F L Pulse Rate 110 H 118 H Respiratory Rate 20 22 Blood Pressure 99/77 117/88 Pulse Oximetry 100 98 Oxygen Delivery Method Nasal Cannula Oxygen Flow Rate 3 1 Oxygen Delivery Method Nasal Cannula Oxygen Flow Rate 1 Narrative Exam Narrative: Gen: Alert, oriented, NAD HEENT: normocephalic, atraumatic, extraocular movements normal. Neck: supple, full ROM, no JVD, trachea is midline. No palpable lymph nodes. Resp: Lungs with adequate air entry throughout the lung simmons and crackles in the bases. CV: RRR, no murmur or rubs. Heart sounds S1 and S2 Abd: soft, non-tender and bowel sounds normal Skin: no lesions or rashes, dry and intact Neuro: Alert and oriented with no focal deficits. Speech clear and coherent. Extremities: moves all 4 extremities, is ambulatory, negative Lane?s sign. Some chronic edema of the lower extremities. Psyche: normal mood and affect. Objective Labs Result Diagrams: 11/17/22 03:47 11/17/22 03:47 Labs: Laboratory Results - last 24 hr 11/16/22 11/16/22 11/16/22 14:48 15:36 15:36 WBC 8.6 RBC 5.13 Hgb 14.6 Hct 45.9 MCV 89.4 MCH 28.5 MCHC 31.9 RDW 18.3 H Plt Count 193 Neut % (Auto) 63.2 Lymph % (Auto) 24.9 L [place] % (Auto) 9.9 Eos % (Auto) 0.7 L Baso % (Auto) 1.3 Neut # (Auto) 5400 Lymph # (Auto) 2100 [place] # (Auto) 800 Eos # (Auto) 100 Baso # (Auto) 100 PT 15.0 H INR 1.3 APTT 30 Sodium Potassium Chloride Carbon Dioxide BUN Creatinine Estimated GFR BUN/Creatinine Ratio Glucose Lactate Calcium Magnesium Total Bilirubin AST ALT Alkaline Phosphatase Total Creatine Kinase CK-MB (CK-2) CK-MB (CK-2) Rel Index Troponin I NT-Pro-B Natriuret Pep Total Protein Albumin Globulin Albumin/Globulin Ratio Lipase Procalcitonin TSH Ur Bilirubin Confirm Urine RBC Urine WBC Urine Bacteria Hyaline Casts Urine Mucus SARS-CoV-2 (PCR) Negative Influenza A (RT-PCR) Flu a negative Influenza B (RT-PCR) Flu b negative RSV (PCR) Negative 11/16/22 11/16/22 11/16/22 15:36 15:36 15:36 WBC RBC Hgb Hct MCV MCH MCHC RDW Plt Count Neut % (Auto) Lymph % (Auto) [place] % (Auto) Eos % (Auto) Baso % (Auto) Neut # (Auto) Lymph # (Auto) [place] # (Auto) Eos # (Auto) Baso # (Auto) PT INR APTT Sodium 139 Potassium 4.0 Chloride 106 Carbon Dioxide 19 L BUN 18 Creatinine 0.72 Estimated GFR > 60 BUN/Creatinine Ratio 25.0 H Glucose 112 H Lactate 3.4 H Calcium 9.4 Magnesium Total Bilirubin 1.3 AST 30 ALT 27 Alkaline Phosphatase 97 Total Creatine Kinase 32 L CK-MB (CK-2) TNP CK-MB (CK-2) Rel Index TNP Troponin I 0.012 NT-Pro-B Natriuret Pep 15757 H Total Protein 6.8 Albumin 3.9 Globulin 2.9 Albumin/Globulin Ratio 1.3 Lipase 71 Procalcitonin 0.06 TSH Ur Bilirubin Confirm Urine RBC Urine WBC Urine Bacteria Hyaline Casts Urine Mucus SARS-CoV-2 (PCR) Influenza A (RT-PCR) Influenza B (RT-PCR) RSV (PCR) 11/16/22 11/16/22 11/16/22 16:13 16:13 17:45 WBC RBC Hgb Hct MCV MCH MCHC RDW Plt Count Neut % (Auto) Lymph % (Auto) [place] % (Auto) Eos % (Auto) Baso % (Auto) Neut # (Auto) Lymph # (Auto) [place] # (Auto) Eos # (Auto) Baso # (Auto) PT INR APTT Sodium Potassium Chloride Carbon Dioxide BUN Creatinine Estimated GFR BUN/Creatinine Ratio Glucose Lactate 3.2 H Calcium Magnesium Total Bilirubin AST ALT Alkaline Phosphatase Total Creatine Kinase CK-MB (CK-2) CK-MB (CK-2) Rel Index Troponin I NT-Pro-B Natriuret Pep Total Protein Albumin Globulin Albumin/Globulin Ratio Lipase Procalcitonin TSH Ur Bilirubin Confirm Negative Urine RBC 0-1/hpf Urine WBC 0-1/hpf Urine Bacteria None seen Hyaline Casts 1-5/lpf Urine Mucus 1+ H SARS-CoV-2 (PCR) Influenza A (RT-PCR) Influenza B (RT-PCR) RSV (PCR) 11/16/22 11/16/22 11/16/22 19:35 19:35 19:35 WBC RBC Hgb Hct MCV MCH MCHC RDW Plt Count Neut % (Auto) Lymph % (Auto) [place] % (Auto) Eos % (Auto) Baso % (Auto) Neut # (Auto) Lymph # (Auto) [place] # (Auto) Eos # (Auto) Baso # (Auto) PT INR APTT Sodium Potassium Chloride Carbon Dioxide BUN Creatinine Estimated GFR BUN/Creatinine Ratio Glucose Lactate Calcium Magnesium 1.7 Total Bilirubin AST ALT Alkaline Phosphatase Total Creatine Kinase CK-MB (CK-2) CK-MB (CK-2) Rel Index Troponin I < 0.012 NT-Pro-B Natriuret Pep Total Protein Albumin Globulin Albumin/Globulin Ratio Lipase Procalcitonin TSH 1.54 Ur Bilirubin Confirm Urine RBC Urine WBC Urine Bacteria Hyaline Casts Urine Mucus SARS-CoV-2 (PCR) Influenza A (RT-PCR) Influenza B (RT-PCR) RSV (PCR) 11/17/22 11/17/22 03:47 03:47 WBC 9.4 RBC 4.71 Hgb 13.7 Hct 41.9 MCV 88.8 MCH 29.1 MCHC 32.7 RDW 18.3 H Plt Count 170 Neut % (Auto) 65.7 Lymph % (Auto) 22.4 L [place] % (Auto) 10.5 Eos % (Auto) 0.5 L Baso % (Auto) 0.9 Neut # (Auto) 6200 Lymph # (Auto) 2100 [place] # (Auto) 1000 H Eos # (Auto) 0 Baso # (Auto) 100 PT INR APTT Sodium 142 Potassium 4.7 Chloride 107 Carbon Dioxide 23 BUN 20 Creatinine 0.92 Estimated GFR > 60 BUN/Creatinine Ratio 21.7 Glucose 119 H Lactate Calcium 9.0 Magnesium Total Bilirubin 1.4 H AST 32 ALT 26 Alkaline Phosphatase 84 Total Creatine Kinase CK-MB (CK-2) CK-MB (CK-2) Rel Index Troponin I NT-Pro-B Natriuret Pep Total Protein 6.4 Albumin 3.6 Globulin 2.8 Albumin/Globulin Ratio 1.3 Lipase Procalcitonin TSH Ur Bilirubin Confirm Urine RBC Urine WBC Urine Bacteria Hyaline Casts Urine Mucus SARS-CoV-2 (PCR) Influenza A (RT-PCR) Influenza B (RT-PCR) RSV (PCR) [facility] Medical History (Updated 11/16/22 @ 22:30 by MCKENNA Quinteros) Cervical sprain (01/21/03) Essential hypertension (01/21/03) Routine medical exam (03/19/03) Surgical History (Updated 11/16/22 @ 22:44 by MCKENNA Quinteros) H/O vasectomy Social History Smoking Status: Former smoker Assessment & Plan Assessment & Plan narrative: CHF exacerbation, acute, present on admission * Patient's high BNP with a CHF exacerbation. Continue diuresis with furosemide and spironolactone and follow BNP. * Complete echo is ordered for today * ASA 81 mg * Telemetry and supplemental O2 ordered Atrial flutter seen on EKG * Patient has a rapid heart rate of 122 on admission. This morning was 118. On metoprolol to help decrease rate. Continue to follow. Essential hypertension, appears to be well controlled * Patient's med list only takes losartan 50 mg p.o. b.i.d., previously took amlodipine 10 mg, also previously took metoprolol but not taking on admission. Losartan has been discontinued. Patient has been place on the [place] toprolol. And to help with diuresis patient is on furosemide and spironolactone which can alleviate hypertension and the reason why losartan was discontinued. He did receive 1 dose of IV metoprolol 5 mg in the ED. History of diabetes type 2, appears to be inactive * I have ordered an A1c to confirm as his glucose was mildly elevated at 112 Follow labs and clinically. Other independent historians: none Discussion of results, plan of care with independent HCP/other day hospitalist team Reviewed outside records: ordered VTE Prophylaxis: Wells risk score? 4.5 Enoxaparin 40 mg subQ once daily? Bilateral SCDs Consultants? None? Dispo: admission to Medical, likely d/c to home Code status: Full code as discussed with the patient who identifies his daughter and son as? his surrogate and POA. Their names are less Zamzam Cherry in [place] Time Spent With Patient Critical Care time: I spent a total of [] minutes of critical care time on this patient's care today; this time is exclusive of procedural time.
[2022-11-17] MEDS: SPIRONOLACTONE 25 MG TABLET PO (11:34)
[2022-11-17] MEDS: MAGNESIUM CHLORIDE 64 MG TABLET 128 MG PO (11:34)
[2022-11-17] MEDS: FUROSEMIDE 40 MG TABLET PO ×2 (11:34→16:02)
[2022-11-17 12:18] VITALS: BP 114/92; PULSE 122; RESP 18; TEMP 36.3; O2SAT 99
--- NOTE | 2022-11-17 13:29 | DI.ECHO.S_ITS ---
[facility] +---------+ : : [address] : [address] : : : : [place], : : : : [place] [id number] : : : : Phone: [phone] [facility]-6046 Echocardiogram Report + + :Name: DEV PASCUAL Study Date: 11/17/2022 Height: 71 in : :[facility] ReadingLocation: Weight: 250 lb : : Gender: Male BSA: 2.3 m2 : :: 1950 Age: 72 yrs BP: 114/92 mmHg: :Reason For Study: Congestive Heart Failure : : Performed By: Jossie Blackburn : :Referring: UNSPECIFIED : + + Interpretation Summary The left ventricle is normal in size and wall thickness. Left ventricular systolic function is severely reduced. The ejection fraction is estimated to be 15-20%. There is severe global hypokinesis of the left ventricle. There is a small apical thrombus. The right ventricle is mildly dilated. Right ventricular systolic function is moderately reduced. The right ventricular systolic pressure is estimated to be at least 45 mmHg based on an estimated right atrial pressure of 15 mm Hg. The left atrium is moderately dilated. The right atrium is mildly dilated. There is moderate mitral regurgitation. There is moderate pulmonic regurgitation. The ascending aorta is mildly enlarged. Procedure: A two-dimensional transthoracic echocardiogram with color flow and Doppler was performed. The study quality was technically good. There is no prior echocardiogram noted for this patient. The patient was in atrial fibrillation with heart rates between 117-120 bpm during the exam. Left Ventricle: The left ventricle is normal in size and wall thickness. There is no ventricular septal defect visualized. There is a small apical thrombus. Left ventricular systolic function is severely reduced. The ejection fraction is estimated to be 15-20%. There is severe global hypokinesis of the left ventricle. Diastolic function could not be accurately assessed due to atrial fibrillation. Right Ventricle: The right ventricle is mildly dilated. Right ventricular systolic function is moderately reduced. Atria: The left atrium is moderately dilated. The right atrium is mildly dilated. There is no Doppler evidence for an interatrial shunt. Mitral Valve: The mitral valve leaflets are slightly calcified. There is moderate mitral regurgitation. Aortic Valve: The aortic valve is trileaflet. The aortic valve is slightly calcified. There is no aortic valve stenosis. There is trace aortic regurgitation. Tricuspid Valve: The tricuspid valve leaflets are thin and pliable. There is mild tricuspid regurgitation. The right ventricular systolic pressure is estimated to be at least 45 mmHg based on an estimated right atrial pressure of 15 mm Hg. Pulmonic Valve: The pulmonic valve leaflets are thin and pliable; valve motion is normal. There is moderate pulmonic regurgitation. Great Vessels: The aortic root is borderline dilated. The ascending aorta is mildly enlarged. The aortic arch could not be visualized. The IVC is dilated (diameter is greater than 2.1 cm) and it collapses less than 50% with a sniff. This suggests a high right atrial pressure of 15 mm Hg. Pericardium/ Pleura There is no pericardial effusion. There are moderate- sized bilateral pleural effusions noted. MMode/2D Measurements & Calculations LVIDd: 5.4 cm AoV Openin.9 cm LVIDs: 4.7 cm LVOT diam: 2.0 cm IVSd: 0.66 cm Ao root diam: 4.2 cm LVPWd: 0.91 cm asc Aorta Diam: 3.8 cm LV childress. diameter/BSA (cm/m^2): 2.3 LV sys. diameter/BSA (cm/m^2): 2.0 FS: 12.4 % EPSS: 1.4 cm LA A2 area: 30.2 cm2 RA long axis: 5.8 cm LA A4 area: 31.0 cm2 RA area: 22.8 cm2 LA length (vol): 6.9 cm RA vol: 75.5 ml LA vol: 114.5 ml RA : 32.6 ml/m2 LA vol index: 49.4 ml/m2 RVD1 (basal): 4.6 cm IVC diam: 2.6 cm TAPSE: 0.73 cm Doppler Measurements & Calculations Ao V2 max: 57.0 cm/sec LVOT Max Farhad: 37.9 cm/sec Ao V2 mean: 38.4 cm/sec LV V1 max P.58 mmHg Ao V2 VTI: 5.7 cm LV V1 VTI: 4.1 cm Ao max P.3 mmHg Ao mean P.67 mmHg YOLANDE(I,D): 2.2 cm2 MV E max farhad: 69.1 cm/sec YOLANDE(V,D): 2.1 cm2 MV A max farhad: 0.51 cm/sec YOLANDE indexed to BSA (cm^2/m^2): 0.97 MV E/A: 136.3 sev ratio: 0.71 Med Peak E' Farhad: 2.5 cm/sec E/E' med: 27.9 Lat Peak E' Farhad: 1.6 cm/sec E/E' lat: 43.4 E/e' average: 35.7 MV dec time: 0.14 sec TR max farhad: 272.7 cm/sec MV mean P.2 mmHg TR max P.8 mmHg MVA(VTI): 1.4 cm2 MR ERO: 0.19 cm2 PA V2 max: 57.3 cm/sec MV V2 mean: 50.5 cm/sec PA V2 mean: 34.2 cm/sec MV V2 VTI: 9.0 cm PA mean P.57 mmHg PA pr(Accel): 59.7 mmHg MR PISA: 2.1 cm2 SV(LVOT): 12.9 ml MR flow rate: 77.4 cm3/sec MR PISA radius: 0.58 cm Reading Physician:02:56 PM
--- NOTE | 2022-11-17 14:21 | CM.DANOTE ---
Patient is a 72 yo male who was admitted on 11/16/22 for SOB. Pt has [email or web address] and [employer] for insurance and his PCP is Dr. Alexandro Castillo. EMR was reviewed. Per MD, pt admitted with CHF exacerbation and possible early pneumonia. Pt's SOB has improved but not resolved and pt getting diuresis and not yet medically stable for d/c. Echo pending. SW met briefly bedside with pt as Echo was coming in and he confirms he lives in [place] and has local supportive son and Dtr and pt is independent at baseline, drives, and denies DME. Pt denies any hx of HH or SNF and is hopeful to d/c home in the next 1-2 days and confirms family can provide transport at d/c. Plan: SW to follow for Echo and medical progress towards confirming safe plan of d/c home via family POV and any further identified needs. EMILY Coronado Discharge Planning/Care Management Advanced directive, confirm from FAMILY Start: 11/17/22 01:01 Freq: Q24H Status: Active Protocol: Document 11/17/22 01:01 MS (Rec: 11/17/22 01:02 MS [id number]) Advance Directive, confirm on record Time 01:01 Person contacted Pt Copy received No CM Discharge Assessment Start: 11/17/22 14:19 Freq: Status: Active Protocol: Document 11/17/22 14:19 BF (Rec: 11/17/22 14:20 BF [id number]) Discharge Planning Assessment Assigned Tractor Sweeper Driver EMILY Ruiz DPOA/Assigned Designee Name Son Rachelle and Dtr Denilson Advance Directives? No Advance Directives on File No History Provided By Patient,Medical Record Has Patient been admitted in last 30 No days? Prior Living Arrangements House Type of transporation used prior to Drives own vehicle admit Independent with ADL's Yes Is patient alert and oriented? Yes Caregiver for Another No Barriers to Discharge No Discharge Plan Home Transportation Arrangement Family to provide transport at d/c Referrals Initiated None needed Whiteboard Updated in Patient Room with Yes name and ext. # of Tractor Sweeper Driver Review Status In Process Please Provide Date Initial DC 11/17/22 Assessment Was Performed Next Review Type Continued Stay Review
[2022-11-17 17:00] VITALS: BP 109/87; PULSE 120; RESP 22; TEMP 36.2; O2SAT 100
[2022-11-17] MEDS: SODIUM CHLORIDE 0.9% FLUSH 10 ML IV (20:25)
[2022-11-17 21:00] VITALS: BP 119/99; PULSE 112; RESP 15; TEMP 35.8; O2SAT 97
[2022-11-17] MEDS: MELATONIN 3 MG TABLET 6 MG PO (23:32)
[2022-11-18] VITALS (7 sets, daily range): BP systolic 99–128; BP diastolic 74–96; PULSE 96–120; RESP 16–24; TEMP 35.8–36.3; O2SAT 92–100
[2022-11-18 04:44] LABS: Alanine Aminotransferase 35 IU/L (<50); Albumin 3.8 g/dL (3.5-5.0); Albumin Globulin Ratio 1.4 (1.0-2.8); Alkaline Phosphatase 85 U/L (38-126); Aspartate Aminotransferase 58 IU/L (17-59); BUN Creatinine Ratio 21.9 (6-22); Bilirubin Total 1.5 mg/dL (0.2-1.3); Blood Urea Nitrogen 25 mg/dL (9-20); Calcium 9.3 mg/dL (8.4-10.2); Carbon Dioxide 19 mmol/L (22-32); Chloride 104 mmol/L (98-107); Estimated Glomerular Filt Rate > 60 mL/min (>60); Globulin 2.7 g/dL (1.7-4.1); Glucose 113 mg/dL (80-110); HEMOLYSIS 39 (0-50); Potassium 5.3 mmol/L (3.4-5.1); Sodium 138 mmol/L (137-145); Total Protein 6.5 g/dL (6.3-8.2)
[2022-11-18 04:53] LABS: NT-proBNP (BNP-Adult 18+) 21600 pg/mL (<125)
[2022-11-18 06:36] LABS: Add Manual Diff / Slide Review NO; Basophils Absolute Auto 100 /uL (0-100); Eosinophils Absolute Auto 100 /uL (0-450); Eosinophils Percent Auto 0.7 % (2-4); Hematocrit 44.8 % (41-53); Hemoglobin 14.4 g/dL (13.5-17.5); Lymphocytes Absolute Auto 2900 /uL (1100-4500); Lymphocytes Percent Auto 29.7 % (25-40); Mean Corpuscular HGB Conc 32.2 % (30-36); Mean Corpuscular Hemoglobin 28.7 PG (26-34); Monocytes Absolute Auto 1000 /uL (0-900); Monocytes Percent Auto 10.2 % (3-14); Neutrophils Absolute Auto 5700 /uL (1500-7000); Neutrophils Percent Auto 58.4 % (50-75); Platelet Count 158 X10^3/uL (150-400); Red Blood Cell Count 5.04 X10^6/uL (4.5-5.9); Red Cell Distribution Width 18.1 % (11.6-14.8); White Blood Cell Count 9.7 X10^3/uL (4.5-11.0)
[2022-11-18] MEDS: METOPROLOL IR 25 MG TABLET PO ×2 (09:14→22:48)
[2022-11-18] MEDS: ACETAMINOPHEN 325 MG TABLET 650 MG PO (09:15)
[2022-11-18] MEDS: ENOXAPARIN 40 MG/0.4 ML SYRINGE SUBCUT (09:15)
[2022-11-18] MEDS: ASPIRIN EC 81 MG TABLET PO (09:15)
[2022-11-18] MEDS: SPIRONOLACTONE 25 MG TABLET PO (09:15)
[2022-11-18] MEDS: FUROSEMIDE 20 MG TABLET PO (09:16)
[2022-11-18] MEDS: SODIUM CHLORIDE 0.9% FLUSH 10 ML IV ×2 (09:17→22:48)
--- NOTE | 2022-11-18 11:54 | PC.NURSE ---
Day shift: Pt states really having trouble breathing right now. 3L NC 100%. Encouraged to deep breath. NC placed over mouth. Helped Pt back into bed and placed bed in chair position. Dr Doran made aware of Pt's breathing, O2 sats, and VS. No new orders at this time. Pt has taken all medications as ordered today. Call light in reach.
--- NOTE | 2022-11-18 12:36 | P.PN_ITS ---
Subjective Subjective Date Patient Seen: 11/18/22 Interval history: Dustin Cherry is a 72-year-old male who presented to the ER with a history of troubles breathing since November 05. X-ray done in the emergency department indicated likely chronic CHF with lung base atelectasis with possible early lung base pneumonia.? No current antibiotic. Admitted for congestive heart failure exacerbation treatment. A complaining of fever chills nausea vomiting or diaphoresis.? Shortness of jeniffer th has improved in his not tachypneic now and O2 saturation is 100% however patient still prefers O2 supplementation (this may be psychological).? Patient does feels more comfortable.? No cough or wheezing.? No abdominal pain constipation or diarrhea.? Normal movement of all extremities. Exam Vital Signs (past 8 hours): - 11/18/22 05:00 11/18/22 09:38 11/18/22 08:00 Temperature 96.6 F L 96.6 F L Pulse Rate 116 H 117 H Respiratory Rate 19 Blood Pressure 128/96 H 114/91 H Pulse Oximetry 100 100 Oxygen Delivery Method Nasal Cannula Oxygen Flow Rate 4 2 11/18/22 12:02 Temperature 97.1 F L Pulse Rate 115 H Respiratory Rate 22 Blood Pressure 99/74 Pulse Oximetry 100 Oxygen Delivery Method Oxygen Flow Rate 3 Oxygen Delivery Method Nasal Cannula Oxygen Flow Rate 3 Narrative Exam Narrative: Gen: Alert, oriented, NAD. However patient indicates he has problems with breathing. HEENT: normocephalic, atraumatic, extraocular movements normal. Neck: supple, full ROM, no JVD, trachea is midline.? No palpable lymph nodes. Resp: Lungs with adequate air entry throughout the lung simmons and questionable crackles in the bases. CV: RRR, no murmur or rubs.? Heart sounds S1 and S2 Abd: soft, non-tender and bowel sounds normal. Obesity of abdomen. Skin: no lesions or rashes, dry and intact Neuro: Alert and oriented with no focal deficits.? Speech clear and coherent. Extremities: moves all 4 extremities, is ambulatory but with significant effort, negative Lane?s sign.? Some chronic edema of the lower extremities that is minimal at this time. Psyche: normal mood and affect. Objective Labs Result Diagrams: 11/18/22 06:15 11/18/22 04:11 Labs: Laboratory Results - last 24 hr 11/17/22 11/18/22 11/18/22 03:47 04:11 04:11 WBC RBC Hgb Hct MCV MCH MCHC RDW Plt Count Neut % (Auto) Lymph % (Auto) [place] % (Auto) Eos % (Auto) Baso % (Auto) Neut # (Auto) Lymph # (Auto) [place] # (Auto) Eos # (Auto) Baso # (Auto) Sodium 138 Potassium 5.3 H Chloride 104 Carbon Dioxide 19 L BUN 25 H Creatinine 1.14 Estimated GFR > 60 BUN/Creatinine Ratio 21.9 Glucose 113 H Hemoglobin A1c 5.0 Calcium 9.3 Total Bilirubin 1.5 H AST 58 ALT 35 Alkaline Phosphatase 85 NT-Pro-B Natriuret Pep 36798 H Total Protein 6.5 Albumin 3.8 Globulin 2.7 Albumin/Globulin Ratio 1.4 11/18/22 06:15 WBC 9.7 RBC 5.04 Hgb 14.4 Hct 44.8 MCV 89.0 MCH 28.7 MCHC 32.2 RDW 18.1 H Plt Count 158 Neut % (Auto) 58.4 Lymph % (Auto) 29.7 [place] % (Auto) 10.2 Eos % (Auto) 0.7 L Baso % (Auto) 1.0 Neut # (Auto) 5700 Lymph # (Auto) 2900 [place] # (Auto) 1000 H Eos # (Auto) 100 Baso # (Auto) 100 Sodium Potassium Chloride Carbon Dioxide BUN Creatinine Estimated GFR BUN/Creatinine Ratio Glucose Hemoglobin A1c Calcium Total Bilirubin AST ALT Alkaline Phosphatase NT-Pro-B Natriuret Pep Total Protein Albumin Globulin Albumin/Globulin Ratio [facility] Medical History (Updated 11/16/22 @ 22:30 by MCKENNA Quinteros) Cervical sprain (01/21/03) Essential hypertension (01/21/03) Routine medical exam (03/19/03) Surgical History (Updated 11/16/22 @ 22:44 by MCKENNA Quinteros) H/O vasectomy Social History Smoking Status: Former smoker Assessment & Plan Assessment & Plan narrative: 1. CHF exacerbation, acute, present on admission * Patient's high BNP with a CHF exacerbation and increased BNP today. Continue diuresis with furosemide with increased dose and spironolactone and follow BNP. * Completed echo with ejection fracture of 15-20% only. * ASA 81 mg * Telemetry and supplemental O2 ordered as needed. 2. Atrial flutter seen on EKG * Patient has a rapid heart rate of 122 on admission.? This morning was 118.? On metoprolol to help decrease rate.? Currently only decreased to 115 this morning. Continue to follow. 3. Essential hypertension, appears to be well controlled * Patient's med list?only takes losartan 50 mg p.o. b.i.d., previously took amlodipine 10 mg,? also previously took metoprolol but not taking on admissio n.? Losartan has been discontinued.? Patient has been place on the metoprolol.? And to help with diuresis patient is on furosemide and spironolactone which can alleviate hypertension and the reason why losartan was discontinued. He did receive 1 dose of IV metoprolol 5 mg in the ED. minimal dose of lisinopril 2.5 mg has been added to benefit congestive heart failure. 3. History of diabetes type 2, appears to be inactive * I have ordered an A1c to confirm as his glucose was mildly elevated at 112. Results still pending a hemoglobin A1c. 4. Persistent sensation of inability to breathe appropriately despite O2 supplementation giving 100% O2 saturation inpatient not being tachypneic. Follow chest x-ray. Follow labs and clinically. Other independent historians: none Discussion of results, plan of care with healthcare medical team. VTE Prophylaxis: Wells risk score? 4.5 Enoxaparin 40 mg subQ once daily? Bilateral SCDs Consultants? None? Dispo: Discharged home once patient is medically stable. Has a follow-up already organized in December with Cardiology. Code status: Full code as discussed with the patient who identifies his daughter and son as? his surrogate and POA.? Their names are less Zamzam Cherry in [place] Time Spent With Patient Critical Care time: I spent a total of [] minutes of critical care time on this patient's care today; this time is exclusive of procedural time.
--- NOTE | 2022-11-18 12:42 | DI.RAD.S_ITS ---
PROCEDURE: XR CHEST 1V INDICATIONS: assess interstitial edema and any infiltrate TECHNIQUE: One view of the chest was acquired. COMPARISON: [facility], CR, XR CHEST 1V, 11/16/2022, 14:53. FINDINGS: Surgical changes and devices: None. Lungs and pleura: Scattered atelectasis and infiltrate. There is blunting both costophrenic angles. Atherosclerotic vascular calcification noted in the aortic arch. Mediastinum: Mediastinal contours appear normal. Heart size is normal. Bones and chest wall: No suspicious bony lesions. Overlying soft tissues appear unremarkable. IMPRESSION: Small bibasilar pleural effusions. Mild atelectasis and or infiltrate Approved by: Jey Fuentes M.D. on 11/18/2022 at 13:14
[2022-11-18] MEDS: TAMSULOSIN 0.4 MG CAPSULE PO (13:06)
[2022-11-18 13:29] LABS: Troponin I 0.016 ng/mL (0.01-0.034)
[2022-11-18] MEDS: CITALOPRAM 10 MG TABLET PO (14:45)
[2022-11-18] MEDS: hydrOXYzine pamoate 25 MG CAPSULE PO ×3 (14:45→22:48)
[2022-11-18] MEDS: AZITHROMYCIN 250 MG TABLET 500 MG PO (15:30)
[2022-11-18] MEDS: FUROSEMIDE 20 MG TABLET 60 MG PO (16:21)
[2022-11-19] VITALS (13 sets, daily range): BP systolic 82–122; BP diastolic 57–94; PULSE 66–118; RESP 16–20; TEMP 35.6–36.1; O2SAT 92–100
[2022-11-19 05:01] LABS: Add Manual Diff / Slide Review NO; Basophils Absolute Auto 100 /uL (0-100); Basophils Percent Auto 0.8 % (0-2); Eosinophils Absolute Auto 100 /uL (0-450); Eosinophils Percent Auto 1.1 % (2-4); Hematocrit 41.4 % (41-53); Hemoglobin 13.2 g/dL (13.5-17.5); Lymphocytes Absolute Auto 2400 /uL (1100-4500); Lymphocytes Percent Auto 27.3 % (25-40); Mean Corpuscular HGB Conc 31.8 % (30-36); Mean Corpuscular Hemoglobin 28.6 PG (26-34); Mean Corpuscular Volume 89.9 fL (80-100); Monocytes Absolute Auto 800 /uL (0-900); Monocytes Percent Auto 9.3 % (3-14); Neutrophils Absolute Auto 5300 /uL (1500-7000); Neutrophils Percent Auto 61.5 % (50-75); Platelet Count 159 X10^3/uL (150-400); Red Blood Cell Count 4.61 X10^6/uL (4.5-5.9); Red Cell Distribution Width 17.9 % (11.6-14.8); White Blood Cell Count 8.7 X10^3/uL (4.5-11.0)
[2022-11-19 05:10] LABS: Lactate (Lactic Acid) 3.5 mmol/L (0.7-2.1)
[2022-11-19 05:14] LABS: Alanine Aminotransferase 53 IU/L (<50); Albumin 3.6 g/dL (3.5-5.0); Albumin Globulin Ratio 1.3 (1.0-2.8); Alkaline Phosphatase 97 U/L (38-126); Aspartate Aminotransferase 72 IU/L (17-59); BUN Creatinine Ratio 25.9 (6-22); Bilirubin Total 1.1 mg/dL (0.2-1.3); Blood Urea Nitrogen 28 mg/dL (9-20); C-Reactive Protein Quant < 0.5 mg/dL (<1.0); Calcium 8.8 mg/dL (8.4-10.2); Carbon Dioxide 18 mmol/L (22-32); Chloride 102 mmol/L (98-107); Estimated Glomerular Filt Rate > 60 mL/min (>60); Globulin 2.8 g/dL (1.7-4.1); Glucose 105 mg/dL (80-110); HEMOLYSIS 21 (0-50); Potassium 4.3 mmol/L (3.4-5.1); Sodium 136 mmol/L (137-145); Total Protein 6.4 g/dL (6.3-8.2)
[2022-11-19 05:20] LABS: NT-proBNP (BNP-Adult 18+) 13700 pg/mL (<125)
[2022-11-19 06:54] LABS: Reflexed Lactate in 2 Hours Y
[2022-11-19 07:35] LABS: Lactate 2HR (Lactic Acid Rflx) 2.5 mmol/L (0.7-2.1)
[2022-11-19] MEDS: AZITHROMYCIN 250 MG TABLET 500 MG PO (09:45)
[2022-11-19] MEDS: CITALOPRAM 10 MG TABLET PO (09:45)
[2022-11-19] MEDS: TAMSULOSIN 0.4 MG CAPSULE PO (09:46)
[2022-11-19] MEDS: ASPIRIN EC 81 MG TABLET PO (09:46)
[2022-11-19] MEDS: SPIRONOLACTONE 25 MG TABLET PO (09:46)
[2022-11-19] MEDS: SODIUM CHLORIDE 0.9% FLUSH 10 ML IV ×2 (09:47→20:39)
[2022-11-19] MEDS: ENOXAPARIN 40 MG/0.4 ML SYRINGE SUBCUT (09:50)
[2022-11-19] MEDS: METOPROLOL IR 25 MG TABLET PO ×2 (11:36→20:39)
--- NOTE | 2022-11-19 12:04 | PC.NURSE ---
Addendum entered by Bijal Mulligan R.N. 11/19/22 12:09: Correction- Held hydroxyzine, see EMAR. Original Note: Late entry- Spoke to Dr. Fink to notify that pts blood pressure this A.M. was 93/71 and heart rate 112, held metoprolol, lisinopril, furosemide, and hydralazine. Per Dr. Fink ok to give metoprolol.
[2022-11-19] MEDS: FUROSEMIDE 20 MG TABLET 60 MG PO (14:12)
--- NOTE | 2022-11-19 14:36 | P.PN_ITS ---
Subjective Subjective Date Patient Seen: 11/19/22 Interval history: Dustin Cherry is a 72-year-old male who presented to the ER with a history of trouble of breathing since November 05. X-ray done in the emergency department indicated likely chronic CHF with lung base atelectasis with possible early lung base pneumonia.? No current antibiotic. Admitted for congestive heart failure exacerbation treatment. Not complaining of fever chills nausea vomiting or diaphoresis.? Shortness of breath has improved in his not tachypneic now and O2 saturation is 100% however patient still prefers O2 supplementation (this may be psychological).? Patient does feels more comfortable.? No cough or wheezing.? No abdominal pain constipation or diarrhea.? Normal movement of all extremities. Some medication was held this morning due to hypotension. Patient currently complaining that he can breathing okay but has difficulty breathing out. Exam Vital Signs (past 8 hours): - 11/19/22 07:58 11/19/22 09:57 11/19/22 07:45 Temperature 96.5 F L Pulse Rate 112 H 113 H 114 H Respiratory Rate 20 17 Blood Pressure 96/71 93/71 103/78 Pulse Oximetry 92 92 Oxygen Flow Rate 4 2 11/19/22 11:30 Temperature 96.6 F L Pulse Rate 118 H Respiratory Rate 20 Blood Pressure 111/90 Pulse Oximetry 100 Oxygen Flow Rate 2 Fraction of Inspired Oxygen 92 Oxygen Delivery Method Nasal Cannula Oxygen Flow Rate 2 Narrative Exam Narrative: Gen: Alert, oriented, NAD.? However patient indicates he has problems with breathing. HEENT: normocephalic, atraumatic, extraocular movements normal. Neck: supple, full ROM, no JVD, trachea is midline.? No palpable lymph nodes. Resp: Lungs with adequate air entry throughout the lung simmons with increased resistance on exhales CV: RRR, no murmur or rubs.? Heart sounds S1 and S2 Abd: soft, non-tender and bowel sounds normal.? Obesity of abdomen. Skin: no lesions or rashes, dry and intact Neuro: Alert and oriented with no focal deficits.? Speech clear and coherent. Extremities: moves all 4 extremities, is ambulatory but with significant effort, negative Lane?s sign.? Some chronic edema of the lower extremities that is minimal at this time. Psyche: normal mood and affect. Objective Labs Result Diagrams: 11/19/22 04:11 11/19/22 04:11 Labs: Laboratory Results - last 24 hr 11/18/22 11/19/22 11/19/22 04:11 04:11 04:11 WBC 8.7 RBC 4.61 Hgb 13.2 L Hct 41.4 MCV 89.9 MCH 28.6 MCHC 31.8 RDW 17.9 H Plt Count 159 Neut % (Auto) 61.5 Lymph % (Auto) 27.3 [place] % (Auto) 9.3 Eos % (Auto) 1.1 L Baso % (Auto) 0.8 Neut # (Auto) 5300 Lymph # (Auto) 2400 [place] # (Auto) 800 Eos # (Auto) 100 Baso # (Auto) 100 Sodium 136 L Potassium 4.3 Chloride 102 Carbon Dioxide 18 L BUN 28 H Creatinine 1.08 Estimated GFR > 60 BUN/Creatinine Ratio 25.9 H Glucose 105 Lactate 3.5 H Calcium 8.8 Total Bilirubin 1.1 AST 72 H ALT 53 H Alkaline Phosphatase 97 C-Reactive Protein < 0.5 NT-Pro-B Natriuret Pep 60976 H Total Protein 6.4 Albumin 3.6 Globulin 2.8 Albumin/Globulin Ratio 1.3 11/19/22 07:09 WBC RBC Hgb Hct MCV MCH MCHC RDW Plt Count Neut % (Auto) Lymph % (Auto) [place] % (Auto) Eos % (Auto) Baso % (Auto) Neut # (Auto) Lymph # (Auto) [place] # (Auto) Eos # (Auto) Baso # (Auto) Sodium Potassium Chloride Carbon Dioxide BUN Creatinine Estimated GFR BUN/Creatinine Ratio Glucose Lactate 2.5 H Calcium Total Bilirubin AST ALT Alkaline Phosphatase C-Reactive Protein NT-Pro-B Natriuret Pep Total Protein Albumin Globulin Albumin/Globulin Ratio [facility] Medical History (Updated 11/16/22 @ 22:30 by MCKENNA Quinteros) Cervical sprain (01/21/03) Essential hypertension (01/21/03) Routine medical exam (03/19/03) Surgical History (Updated 11/16/22 @ 22:44 by MCKENNA Quinteros) H/O vasectomy Social History Smoking Status: Former smoker Assessment & Plan Assessment & Plan narrative: . CHF exacerbation, acute, present on admission * Patient's high BNP with a CHF exacerbation and increased BNP today. Continue diuresis with furosemide with increased dose and spironolactone and follow BNP. BNP is decreasing. We will follow tomorrow. * Completed echo with ejection fracture of 15-20% only. * ASA 81 mg * Telemetry and supplemental O2 ordered as needed. 2. Atrial flutter seen on EKG * Patient has a rapid heart rate of 122 on admission.? This morning was 118.? On metoprolol to help decrease rate.? Continue to follow. Cannot increase metoprolol hypotension but will add digoxin. 3. Essential hypertension, appears to be well controlled * Patient's med list?only takes losartan 50 mg p.o. b.i.d., previously took amlodipine 10 mg,? also previously took metoprolol but not taking on admission.? Losartan has been discontinued.? Patient has been placedon the metoprolol to benefit heart rate, dose increased yesterday.? And to help with diuresis patient is on furosemide and spironolactone which can alleviate hypertension and the reason why losartan was discontinued. He did receive 1 dose of IV metoprolol 5 mg in the ED. Minimal dose of lisinopril 2.5 mg has been added to benefit congestive heart failure. 3. History of diabetes type 2, appears to be inactive * I have ordered an A1c to confirm as his glucose has been mildly elevated.? Results still pending on hemoglobin A1c. 4. Persistent sensation of inability to breathe appropriately despite O2 supplementation giving 100% O2 saturation inpatient not being tachypneic.? F ollow chest x-ray. Also give methylprednisolone 40 mg IV daily for 3 days. VTE Prophylaxis: Wells risk score? 4.5 Enoxaparin 40 mg subQ once daily? Bilateral SCDs Dispo: admission to Medical, likely d/c to home medically stable. Code status: Full code as discussed with the patient who identifies his daughter and son as? his surrogate and POA.? Their names are less Zamzam Cherry in [place] Time Spent With Patient Critical Care time: I spent a total of [] minutes of critical care time on this patient's care today; this time is exclusive of procedural time.
[2022-11-19] MEDS: hydrOXYzine pamoate 25 MG CAPSULE 50 MG PO ×3 (15:19→20:38)
[2022-11-19] MEDS: DIGOXIN 500 MCG/2 ML AMPUL IV (15:33)
--- NOTE | 2022-11-19 15:48 | PC.NURSE ---
Addendum entered by Bijal Mulligan R.N. 11/19/22 16:27: Re assessed patient blood pressure 104/82 and heart rate 66. Original Note: Notified Dr. Fink b/p 82/57 and heart rate 113. Per Monika Fink give Digoxin as ordered, see EMAR.
--- NOTE | 2022-11-19 15:58 | CM.DPC ---
DCP Cont: Discussed patient during team rounds. Plan is home when stable, he does have a follow up cardiology appt in Dec. There has been some conversation regarding possible heart transplant list, since patient has a low ejection fraction. P: Plan is for patient to go home when stable. Norma Lui RN/Statistical Analyst
[2022-11-19] MEDS: DIGOXIN 0.125 MG TABLET 0.25 MG PO (17:51)
[2022-11-19] MEDS: FUROSEMIDE 40 MG TABLET PO (20:38)
[2022-11-19] MEDS: ACETAMINOPHEN 325 MG TABLET 650 MG PO (20:39)
[2022-11-19] MEDS: MELATONIN 3 MG TABLET 6 MG PO (20:43)
[2022-11-19] MEDS: DIGOXIN 500 MCG/2 ML AMPUL 250 MCG IV (20:44)
[2022-11-20 00:47] VITALS: BP 103/70; PULSE 63; RESP 18; TEMP 35.8; O2SAT 93
[2022-11-20 03:51] VITALS: BP 125/102; PULSE 94
[2022-11-20] MEDS: DIGOXIN 500 MCG/2 ML AMPUL 250 MCG IV (03:51)
[2022-11-20 04:11] VITALS: BP 111/65; PULSE 84; RESP 18; TEMP 36; O2SAT 99
[2022-11-20 06:21] LABS: Add Manual Diff / Slide Review NO; Basophils Absolute Auto 0 /uL (0-100); Basophils Percent Auto 0.1 % (0-2); Eosinophils Absolute Auto 0 /uL (0-450); Hematocrit 42.6 % (41-53); Hemoglobin 13.9 g/dL (13.5-17.5); Lymphocytes Absolute Auto 800 /uL (1100-4500); Lymphocytes Percent Auto 18.7 % (25-40); Mean Corpuscular HGB Conc 32.7 % (30-36); Mean Corpuscular Hemoglobin 28.7 PG (26-34); Mean Corpuscular Volume 87.7 fL (80-100); Monocytes Absolute Auto 200 /uL (0-900); Monocytes Percent Auto 5.2 % (3-14); Neutrophils Absolute Auto 3300 /uL (1500-7000); Platelet Count 137 X10^3/uL (150-400); Red Blood Cell Count 4.86 X10^6/uL (4.5-5.9); Red Cell Distribution Width 17.5 % (11.6-14.8); White Blood Cell Count 4.3 X10^3/uL (4.5-11.0)
[2022-11-20 06:23] LABS: Hemoglobin A1C% w Est Avg Glu 5.4 % (4.0-6.0)
[2022-11-20 06:24] LABS: Alanine Aminotransferase 74 IU/L (<50); Albumin 3.7 g/dL (3.5-5.0); Albumin Globulin Ratio 1.2 (1.0-2.8); Alkaline Phosphatase 104 U/L (38-126); Aspartate Aminotransferase 82 IU/L (17-59); BUN Creatinine Ratio 31.3 (6-22); Blood Urea Nitrogen 30 mg/dL (9-20); Calcium 8.9 mg/dL (8.4-10.2); Carbon Dioxide 23 mmol/L (22-32); Chloride 100 mmol/L (98-107); Estimated Glomerular Filt Rate > 60 mL/min (>60); Glucose 130 mg/dL (80-110); HEMOLYSIS < 15 (0-50); Lactate (Lactic Acid) 2.1 mmol/L (0.7-2.1); Potassium 4.6 mmol/L (3.4-5.1); Sodium 136 mmol/L (137-145); Total Protein 6.7 g/dL (6.3-8.2)
[2022-11-20 06:28] LABS: C-Reactive Protein Quant < 0.5 mg/dL (<1.0)
[2022-11-20 06:32] LABS: NT-proBNP (BNP-Adult 18+) 17100 pg/mL (<125)
[2022-11-20 07:58] LABS: Reflexed Lactate in 2 Hours Y
[2022-11-20 09:00] VITALS: BP 132/78; PULSE 84; RESP 18; TEMP 35.9; O2SAT 98
--- NOTE | 2022-11-20 09:02 | P.PN_ITS ---
Exam Vital Signs (past 8 hours): - 11/20/22 03:51 11/20/22 04:11 Temperature 96.8 F L Pulse Rate 94 H 84 Respiratory Rate 18 Blood Pressure 125/102 H 111/65 Pulse Oximetry 99 Oxygen Flow Rate 0 Fraction of Inspired Oxygen 92 Oxygen Delivery Method Room Air Oxygen Flow Rate 0 Narrative Exam Narrative: Gen: Alert, oriented, NAD.? However patient indicates he has problems with breathing. HEENT: normocephalic, atraumatic, extraocular movements normal. Neck: supple, full ROM, no JVD, trachea is midline.? No palpable lymph nodes. Resp: Lungs with adequate air entry throughout the lung simmons with increased resistance on exhales CV: RRR, no murmur or rubs.? Heart sounds S1 and S2 Abd: soft, non-tender and bowel sounds normal.? Obesity of abdomen. Skin: no lesions or rashes, dry and intact Neuro: Alert and oriented with no focal deficits.? Speech clear and coherent. Extremities: moves all 4 extremities, is ambulatory but with significant effort, negative Lane?s sign.? Some chronic edema of the lower extremities that is minimal at this time. Psyche: normal mood and affect. Objective Labs Result Diagrams: 11/20/22 05:28 11/20/22 05:28 Labs: Laboratory Results - last 24 hr 11/20/22 11/20/22 11/20/22 05:28 05:28 05:28 WBC 4.3 L D RBC 4.86 Hgb 13.9 Hct 42.6 MCV 87.7 MCH 28.7 MCHC 32.7 RDW 17.5 H Plt Count 137 L Neut % (Auto) 76.0 H Lymph % (Auto) 18.7 L [place] % (Auto) 5.2 Eos % (Auto) 0.0 L Baso % (Auto) 0.1 Neut # (Auto) 3300 Lymph # (Auto) 800 L [place] # (Auto) 200 Eos # (Auto) 0 Baso # (Auto) 0 Sodium 136 L Potassium 4.6 Chloride 100 Carbon Dioxide 23 BUN 30 H Creatinine 0.96 Estimated GFR > 60 BUN/Creatinine Ratio 31.3 H Glucose 130 H Hemoglobin A1c Lactate 2.1 Calcium 8.9 Total Bilirubin 1.0 AST 82 H ALT 74 H Alkaline Phosphatase 104 C-Reactive Protein NT-Pro-B Natriuret Pep 75341 H Total Protein 6.7 Albumin 3.7 Globulin 3.0 Albumin/Globulin Ratio 1.2 11/20/22 11/20/22 05:28 05:28 WBC RBC Hgb Hct MCV MCH MCHC RDW Plt Count Neut % (Auto) Lymph % (Auto) [place] % (Auto) Eos % (Auto) Baso % (Auto) Neut # (Auto) Lymph # (Auto) [place] # (Auto) Eos # (Auto) Baso # (Auto) Sodium Potassium Chloride Carbon Dioxide BUN Creatinine Estimated GFR BUN/Creatinine Ratio Glucose Hemoglobin A1c 5.4 Lactate Calcium Total Bilirubin AST ALT Alkaline Phosphatase C-Reactive Protein < 0.5 NT-Pro-B Natriuret Pep Total Protein Albumin Globulin Albumin/Globulin Ratio [facility] Medical History (Updated 11/16/22 @ 22:30 by MCKENNA Quinteros) Cervical sprain (01/21/03) Essential hypertension (01/21/03) Routine medical exam (03/19/03) Surgical History (Updated 11/16/22 @ 22:44 by MCKENNA Quinteros) H/O vasectomy Social History Smoking Status: Former smoker Assessment & Plan Assessment & Plan narrative: 1. Acute systolic CHF exacerbation, acute, present on admission * Patient's high BNP with a CHF exacerbation and increased BNP today. Continue diuresis with furosemide with increased dose and spironolactone and follow BNP. BNP is decreasing. We will follow tomorrow. * Completed echo with ejection fracture of 15-20% only. * ASA 81 mg * Telemetry and supplemental O2 ordered as needed. 2. Atrial flutter seen on EKG * Patient has a rapid heart rate of 122 on admission.? This morning was 118.? On metoprolol to help decrease rate.? Continue to follow. Cannot increase metoprolol hypotension but will add digoxin. 3. Essential hypertension, appears to be well controlled * Patient's med list?only takes losartan 50 mg p.o. b.i.d., previously took amlodipine 10 mg,? also previously took metoprolol but not taking on admission.? Losartan has been discontinued.? Patient has been placedon the metoprolol to benefit heart rate, dose increased yesterday.? And to help with diuresis patient is on furosemide and spironolactone which can alleviate hypertension and the reason why losartan was discontinued. He did receive 1 dose of IV metoprolol 5 mg in the ED. Minimal dose of lisinopril 2.5 mg has been added to benefit congestive heart failure. 4. History of diabetes type 2, appears to be inactive * I have ordered an A1c to confirm as his glucose has been mildly elevated.? A1c 5.4%. 5. Persistent sensation of inability to breathe appropriately despite O2 supplementation giving 100% O2 saturation inpatient not being tachypneic.? Follow chest x-ray. Also give methylprednisolone 40 mg IV daily for 3 days. VTE Prophylaxis: Enoxaparin 40 mg subQ once daily Dispo: admission to Medical, likely d/c to home medically stable. Code status: Full code as discussed with the patient who identifies his daughter and son as?his surrogate and POA.? Their names are Zamzam Cherry in [place]. Time Spent With Patient Critical Care time: I spent a total of [] minutes of critical care time on this patient's care today; this time is exclusive of procedural time.
[2022-11-20] MEDS: hydrOXYzine pamoate 25 MG CAPSULE 50 MG PO ×2 (09:32→12:31)
[2022-11-20] MEDS: predniSONE 20 MG TABLET 40 MG PO (09:32)
[2022-11-20] MEDS: FUROSEMIDE 40 MG TABLET PO ×2 (09:32→14:48)
[2022-11-20 09:33] VITALS: BP 132/78; PULSE 87
[2022-11-20] MEDS: lisinopriL 5 MG TABLET 2.5 MG PO (09:33)
[2022-11-20] MEDS: CITALOPRAM 10 MG TABLET PO (09:34)
[2022-11-20] MEDS: SPIRONOLACTONE 25 MG TABLET PO (09:34)
[2022-11-20] MEDS: METOPROLOL IR 25 MG TABLET PO (09:34)
[2022-11-20] MEDS: TAMSULOSIN 0.4 MG CAPSULE PO (09:34)
[2022-11-20] MEDS: ASPIRIN EC 81 MG TABLET PO (09:34)
[2022-11-20] MEDS: SODIUM CHLORIDE 0.9% FLUSH 10 ML IV (09:34)
[2022-11-20] MEDS: AZITHROMYCIN 250 MG TABLET 500 MG PO (09:34)
[2022-11-20] MEDS: ENOXAPARIN 40 MG/0.4 ML SYRINGE SUBCUT (09:34)
[2022-11-20 13:00] VITALS: BP 133/90; PULSE 83; RESP 18; TEMP 36.7; O2SAT 96
--- NOTE | 2022-11-20 13:46 | P.DS_ITS ---
History of Present Illness History of Present Illness Date Patient Seen: 11/20/22 Time Patient Seen: 13:46 Chief complaint: SOB/dizzy/ t-14 getting worse Narrative: Dustin Cherry is a 72-year-old male who presents to the ER with a history of troubles breathing since November 05. Unknown as to why he did not seek attention prior to. He has no cough or fever or chills. He is had swelling in his lower extremities for the past 2-3 months and apparently has been referred to director professional services and will see him or her in December of this year. He denies cough, sore throat, nausea or vomiting, he states his appetite has been diminished, he states that he is had a little bit of diarrhea but no constipation, and has numbing and tingling of his hands and feet which has been for several months. He states that he was diabetic and taking metformin but that he was taken off of it because his A1c went into the low 5s. X-ray done in the emergency department indicated likely chronic CHF with lung base atelectasis with possible early lung base pneumonia. He is afebrile, blood pressure 134/106 heart rate 118 respiratory rate 22 oxygen saturation of 96% on room air. He did desaturate in the room while speaking to him into the 70s and 80s. CBC was unremarkable, serum bicarb was 19 glucose 112 lactate is 3.2 down from 3.4 thought to be from his rapid heart rate, [place] [address], TSH is normal UA is also normal and COVID-19 PCR is negative. FH: Family history field not functioning. Mother in her 80s of an NV, father in his late 80s likely cardiac arrest, son in his early 40s with diabetes. Patient has an adult daughter no health problems stated and a sister age 75 stated she had multiple health problems but not specific. Discharge Providers Provider Date of admission: 11/16/22 20:00 Discharge Date: 11/20/22 Primary care physician: Alexandro Castillo MD Discharge provider: Stevie Peace DO Summary Hospital Course Discharge Diagnosis: 1. Acute systolic CHF exacerbation, acute, present on admission 2. Atrial flutter seen on EKG 3. Essential hypertension, appears to be well controlled 4. History of diabetes type 2, appears to be inactive. A1c 5.4% Hospital Course: Patient admitted for worsening shortness of breath and palpitations and found to be in a flutter with new onset systolic CHF with EF 15-20%. Patient started on metoprolol which and difficulty controlling his rate so digoxin was added with good effect. [id number] greater than 2 so he was put on Eliquis. Also lisinopril, aldactone and Lipitor added. Given lasix for diuresis and quickly reverted to euvolemia. Dyspnea improved and heart rate was stable in 80s. He was instructed to follow-up with his PCP for cardiology referral. Patient also requesting medication for anxiety regarding his conditions citalopram started. Due to difficulty urinating he was given Flomax as well. Some wheezes on exam started on prednisone for possible COPD component this was continued for 5 days on discharge. Time Spent with Patient Time spent: Greater than 30 minutes Exam Vital Signs (past 8 hours): - 11/20/22 09:33 11/20/22 09:00 11/20/22 13:00 Temperature 96.7 F L 98.0 F Pulse Rate 87 84 83 Respiratory Rate 18 18 Blood Pressure 132/78 132/78 133/90 Pulse Oximetry 98 96 Oxygen Flow Rate 0 0 Fraction of Inspired Oxygen 92 Oxygen Delivery Method Room Air Oxygen Flow Rate 0 Narrative Exam Narrative: Gen: Alert, oriented, NAD. HEENT: normocephalic, atraumatic, extraocular movements normal. Neck: supple, full ROM, no JVD, trachea is midline.? No palpable lymph nodes. Resp: Lungs with adequate air entry throughout the lung simmons with increased resistance on exhales CV: RRR, no murmur or rubs.? Heart sounds S1 and S2 Abd: soft, non-tender and bowel sounds normal.? Obesity of abdomen. Skin: no lesions or rashes, dry and intact Neuro: Alert and oriented with no focal deficits.? Speech clear and coherent. Extremities: moves all 4 extremities, is ambulatory but with significant effort, negative Lane?s sign.? Some chronic edema of the lower extremities that is minimal at this time. Psyche: normal mood and affect. Objective Labs Result Diagrams: 11/20/22 05:28 11/20/22 05:28 Labs: Laboratory Results - last 24 hr 11/20/22 11/20/22 11/20/22 05:28 05:28 05:28 WBC 4.3 L D RBC 4.86 Hgb 13.9 Hct 42.6 MCV 87.7 MCH 28.7 MCHC 32.7 RDW 17.5 H Plt Count 137 L Neut % (Auto) 76.0 H Lymph % (Auto) 18.7 L [place] % (Auto) 5.2 Eos % (Auto) 0.0 L Baso % (Auto) 0.1 Neut # (Auto) 3300 Lymph # (Auto) 800 L [place] # (Auto) 200 Eos # (Auto) 0 Baso # (Auto) 0 Sodium 136 L Potassium 4.6 Chloride 100 Carbon Dioxide 23 BUN 30 H Creatinine 0.96 Estimated GFR > 60 BUN/Creatinine Ratio 31.3 H Glucose 130 H Hemoglobin A1c Lactate 2.1 Calcium 8.9 Total Bilirubin 1.0 AST 82 H ALT 74 H Alkaline Phosphatase 104 C-Reactive Protein NT-Pro-B Natriuret Pep 64685 H Total Protein 6.7 Albumin 3.7 Globulin 3.0 Albumin/Globulin Ratio 1.2 11/20/22 11/20/22 05:28 05:28 WBC RBC Hgb Hct MCV MCH MCHC RDW Plt Count Neut % (Auto) Lymph % (Auto) [place] % (Auto) Eos % (Auto) Baso % (Auto) Neut # (Auto) Lymph # (Auto) [place] # (Auto) Eos # (Auto) Baso # (Auto) Sodium Potassium Chloride Carbon Dioxide BUN Creatinine Estimated GFR BUN/Creatinine Ratio Glucose Hemoglobin A1c 5.4 Lactate Calcium Total Bilirubin AST ALT Alkaline Phosphatase C-Reactive Protein < 0.5 NT-Pro-B Natriuret Pep Total Protein Albumin Globulin Albumin/Globulin Ratio [facility] Medical History (Updated 11/16/22 @ 22:30 by MCKENNA Quinteros) Cervical sprain (01/21/03) Essential hypertension (01/21/03) Routine medical exam (03/19/03) Surgical History (Updated 11/16/22 @ 22:44 by MCKENNA Quinteros) H/O vasectomy Social History Smoking Status: Former smoker Discharge Plan Discharge Plan Patient Disposition: Home Provider Discharge Comment: You were admitted for shortness of breath and found to have new heart failure and atrial fibrillation. You will need to see a director professional services for this. You are now going home on several new heart medications and please take as prescribed. I've included some reading material about your new heart conditions. I called your pharmacy and found out that angelica was covered so you will now be on that to prevent stroke. Discharge orders & Medications Prescriptions: New prednisone 20 mg Tablet 40 mg PO DAILY 3 Days Qty: 6 0RF Rx Instructions: start on 11/21 metoprolol tartrate 25 mg Tablet 25 mg PO BID Qty: 180 0RF citalopram 10 mg Tablet 10 mg PO DAILY Qty: 90 0RF spironolactone 25 mg Tablet 25 mg PO DAILY Qty: 90 0RF tamsulosin [Flomax] 0.4 mg Capsule 0.4 mg PO BEDTIME Qty: 90 0RF atorvastatin [Lipitor] 40 mg tablet 40 mg PO QPM Qty: 90 0RF Eliquis 5 mg tablet 5 mg PO BID Qty: 60 0RF digoxin 250 mcg (0.25 mg) tablet 250 mcg PO DAILY Qty: 90 0RF Rx Instructions: start on 11/21 Changed losartan 50 MG tablet 25 mg PO QDAY Qty: 90 0RF Follow up/Referrals: Alexandro Castillo MD [Primary Care Provider] - Visit Report/Discharge Packet Instructions: Heart Failure, DI for Heart Failure, DI for Atrial Fibrillation, Atorvastatin, Prednisone, Digoxin, Spironolactone, Metoprolol, Losartan, Tamsulosin, Citalopram, Apixaban Stand Alone Forms: Congestive Heart Failure, Patient Portal/API, Stroke Signs & Symptoms Discharge Data Primary Care Provider: Alexandro Castillo
--- NOTE | 2022-11-20 17:19 | PC.NURSE ---
Pt is dressed and ready for discharge home with Daughter. IV and tele have been removed. Went over d/c instructions with Pt and Daughter-discussed d/c meds-several new meds so discussed timing, dosing, precautions, and side effects, reminded Pt to try to take his meds at the same time as prescribed daily, reviewed stroke education, reviewed and provided CHF guidelines sheet and recommended Pt post on his fridge to remind him to weight himself daily and be aware of signs of CHF exacerbation, discussed concerns regarding anti-coagulant therapy, and getting up slowly from bed or chair due to new bp meds, and follow up with his PCP as recommended. Pt and daughter denied further questions and Pt was taken out via w/c by [employer] to POV with daughter and all belongings.
== END 2022-11-20 17:24 | disposition home or self-care (01) | DRG 291 ==
LOC: ED 19:13 → AC 20:00
PROVIDERS: Emergency Medicine; Neuromusculoskeletal Medicine, Sports Medicine; Nurse Practitioner Family; Admitting Provider Student in an Organized Health Care Education/Training Program; Emergency Provider Emergency Medicine; PCP Family Medicine; Referring Provider Emergency Medicine; Visit Provider Student in an Organized Health Care Education/Training Program
DX: I11.0 Hypertensive heart disease with heart failure (principal); I50.21 Acute systolic (congestive) heart failure; I48.92 Unspecified atrial flutter; J44.9 Chronic obstructive pulmonary disease, unspecified; Z20.822 Contact with and (suspected) exposure to COVID-19; Z87.891 Personal history of nicotine dependence; Z86.39 Personal history of other endocrine, nutritional and metabolic disease
CPT/HCPCS: 0241U; 36415; 51798; 71045; 80053; 81003; 81015; 82550; 83036; 83605; 83690; 83735; 83880; 84145; 84443; 84484; 85025; 85610; 85730; 86140; 87040; 87086; 93005; 93010; 93306; 94760; 94762; 96374; 96375; 99284; 99285; J1160; J1650; J1940; J2920

== ENCOUNTER 2023-06-06 12:17 | Emergency (ER) | payer OTHER, SELFPAY ==
[2023-06-06 12:20] VITALS: BP 142/87; PULSE 86; RESP 18; TEMP 36.1; O2SAT 94; BMI 27.8
--- NOTE | 2023-06-06 12:38 | DI.RAD.S_ITS ---
PROCEDURE: XR HAND RT MIN 3V INDICATIONS: swelling/numbness TECHNIQUE: 3 views of the hand(s) acquired. COMPARISON: None. FINDINGS: Bones: No fractures or dislocations. Carpal bones are normally aligned. No suspicious bony lesions. [id number] osteoarthritic disease. There is bony erosion in the 1st metacarpal head. Soft tissues: No suspicious soft tissue calcifications. There is soft tissue swelling. IMPRESSION: 1. No acute osseous abnormality. 2. Mild osteoarthritis. There is bony erosion in the 1st metacarpal head. Recommend clinical correlation for inflammatory arthritis such as erosive OA. 3. Soft tissue swelling. Dictated by: Jayne Gutiérrez M.D. on 06/06/2023 at 14:06 Approved by: Jayne Gutiérrez M.D. on 06/06/2023 at 14:10
--- NOTE | 2023-06-06 13:59 | PC.NURSE ---
Pts right hand is extremely swollen. Pt denies injury. Pt can feel me touching his fingers but they feel numb.
--- NOTE | 2023-06-06 14:07 | ED.EXTPRO ---
HPI - Extremity Problem <Margo Stephenson, [facility] - Last Filed: 06/06/23 14:20> General Chief complaint: Extremity Problem,Nontraumatic Stated complaint: Swelling/Numbness of hands Time Seen by Provider: 06/06/23 13:59 Source: patient Mode of arrival: Wheelchair History of Present Illness HPI Narrative: This is a 72-year-old gentleman who presents to the emergency department with swelling of his right hand over the last week, states it is now very painful, red, tender on the dorsum of his hand without known injury. States this happened to his left hand 2 weeks ago and it has found this started to go down without antibiotics. Is anticoagulated for history of atrial flutter with RVR, CHF, history of alcohol abuse and has been sober, hypertension and borderline diabetic. He states that he has been taking [id number] pain medication and it is not adequate for how this is progressed overnight. He denies any puncture wound or any superficial wounds. States that the swelling is primarily in the dorsum of his hand but it is affecting his ability to open and close his hands and flex his fingers. He is able to flex and extend his fingers with full range of motion foot is slightly limited due to edema. Related Data Previous Rx's Medication Instructions Recorded apixaban 5 mg tablet (Eliquis) 5 mg PO BID #60 tabs 11/20/22 atorvastatin 40 mg tablet (Lipitor) 40 mg PO QPM #90 tabs 11/20/22 citalopram 10 mg tablet 10 mg PO DAILY #90 tabs 11/20/22 digoxin 250 mcg (0.25 mg) tablet 250 mcg PO DAILY #90 tabs 11/20/22 losartan 50 mg tablet 25 mg PO QDAY #90 tabs 11/20/22 metoprolol tartrate 25 mg tablet 25 mg PO BID #180 tabs 11/20/22 spironolactone 25 mg tablet 25 mg PO DAILY #90 tabs 11/20/22 tamsulosin 0.4 mg capsule (Flomax) 0.4 mg PO BEDTIME #90 caps 11/20/22 cephalexin 500 mg capsule 500 mg PO QID 7 days #28 caps 06/06/23 diclofenac sodium 1 % topical gel 2 g topical QID #100 grams 06/06/23 doxycycline hyclate 100 mg capsule 100 mg PO BID 7 days #14 caps 06/06/23 hydrocodone 5 mg-acetaminophen 325 1 tab PO Q6H PRN pain #14 tabs 06/06/23 mg tablet lidocaine 4 % topical cream 1 applic topical BID hand pain #28 06/06/23 grams Allergies Allergy/AdvReac Type Severity Reaction Status Date / Time Penicillins Allergy Unknown Verified 06/06/23 12:20 Review of Systems <MCKENNA Mcgregor - Last Filed: 06/06/23 14:20> Review of Systems ROS Unobtainable: All systems reviewed & are unremarkable except as noted in HPI and below Patient History <MCKENNA Mcgregor - Last Filed: 06/06/23 14:20> Medical History Cervical sprain (01/21/03) Essential hypertension (01/21/03) Routine medical exam (03/19/03) Surgical History H/O vasectomy Social History Smoking Status: Current every day smoker Smoking Status: Current every day smoker tobacco type: cigarettes alcohol intake frequency: 0-2 drinks per day Substance Use Type: marijuana Exam <MCKENNA Mcgregor - Last Filed: 06/06/23 14:20> Narrative Exam Narrative: Reviewed vitals signs and nursing notes. General: Pleasant, sitting upright, in no acute distress, well groomed, afebrile HEENT: symmetrical facial expressions, moist mucous membranes MSK: moves all extremities, no weakness, normal tone, ambulatory without deficit, dorsum of right hand is edematous, erythematous, appears cellulitic, not circumferential, tender to palpation without fluctuance or wound. Normal range of motion of hand and fingers, flexion and extension intact with an all fingers Skin: brisk capillary refill, erythema to the dorsum of the right hand Neuro: clear speech and normal cognition, A&O x3, GCS 15, no focal motor or sensation deficits Initial Vital Signs Initial Vital Signs: Vital Signs Temperature 96.9 F L 06/06/23 12:20 Pulse Rate 86 06/06/23 12:20 Respiratory Rate 18 06/06/23 12:20 Blood Pressure 142/87 H 06/06/23 12:20 Pulse Oximetry 94 06/06/23 12:20 Oxygen Delivery Method Room Air 06/06/23 12:20 <Bernard Bales MD - Last Filed: 06/11/23 12:12> Initial Vital Signs Initial Vital Signs: Vital Signs Temperature 96.9 F L 06/06/23 12:20 Pulse Rate 86 06/06/23 12:20 Respiratory Rate 18 06/06/23 12:20 Blood Pressure 142/87 H 06/06/23 12:20 Pulse Oximetry 94 06/06/23 12:20 Oxygen Delivery Method Room Air 06/06/23 12:20 Course <MCKENNA Mcgregor - Last Filed: 06/06/23 14:20> Orders Ordered: Discontinued Medications Hydrocodone Bitart/Acetaminophen (Hydrocodone/Acet 5/325 Tablet) 1 tab PO NOW ONE Stop: 06/06/23 14:08 Last Admin: 06/06/23 14:12 Dose: 1 tab Documented By: WALTER Cephalexin HCl (Cephalexin 250 Mg Capsule) 500 mg PO NOW ONE Stop: 06/06/23 14:07 Last Admin: 06/06/23 14:12 Dose: 500 mg Documented By: WALTER Doxycycline Hyclate (Doxycycline Hyclate 100 Mg Tablet) 100 mg PO NOW ONE Stop: 06/06/23 14:07 Last Admin: 06/06/23 14:12 Dose: 100 mg Documented By: WALTER Ketorolac Tromethamine (Ketorolac 30 Mg/Ml Vial) 15 mg IM NOW ONE Stop: 06/06/23 14:07 Last Admin: 06/06/23 14:11 Dose: 15 mg Documented By: WALTER Vital Signs Vital signs: Vital Signs - 8 hr 06/06/23 12:20 Temperature 96.9 F L Pulse Rate 86 Respiratory Rate 18 Blood Pressure 142/87 H Pulse Oximetry 94 Oxygen Delivery Method Room Air <Bernard Bales MD - Last Filed: 06/11/23 12:12> Orders Ordered: Discontinued Medications Hydrocodone Bitart/Acetaminophen (Hydrocodone/Acet 5/325 Tablet) 1 tab PO NOW ONE Stop: 06/06/23 14:08 Last Admin: 06/06/23 14:12 Dose: 1 tab Documented By: WALTER Cephalexin HCl (Cephalexin 250 Mg Capsule) 500 mg PO NOW ONE Stop: 06/06/23 14:07 Last Admin: 06/06/23 14:12 Dose: 500 mg Documented By: WALTER Doxycycline Hyclate (Doxycycline Hyclate 100 Mg Tablet) 100 mg PO NOW ONE Stop: 06/06/23 14:07 Last Admin: 06/06/23 14:12 Dose: 100 mg Documented By: WALETR Ketorolac Tromethamine (Ketorolac 30 Mg/Ml Vial) 15 mg IM NOW ONE Stop: 06/06/23 14:07 Last Admin: 06/06/23 14:11 Dose: 15 mg Documented By: WALTER Vital Signs Vital signs: Vital Signs - 8 hr 06/06/23 12:20 Temperature 96.9 F L Pulse Rate 86 Respiratory Rate 18 Blood Pressure 142/87 H Pulse Oximetry 94 Oxygen Delivery Method Room Air MDM - Extremity (Nontraumatic) <Margo Stephenson [facility] - Last Filed: 06/06/23 14:20> Imaging Data Extremity x-ray #1: Radiologist's Impression: [address] [place] [address] XRay Report Signed Patient: Dustin Tatum MR#: [id number] : 1950 Acct:[id number] Age/Sex: 72 / M Date of Service: 06/06/23 Loc: ED Accession Number: [id number] ?? Procedure: XR hand RT min 3V Ordering Provider: Bernard Bales MD PROCEDURE:? XR HAND RT MIN 3V ? INDICATIONS:? swelling/numbness ? TECHNIQUE:? 3 views of the hand(s) acquired.? ? COMPARISON:? None. ? FINDINGS:? ? Bones:? No fractures or dislocations.? Carpal bones are normally aligned.? No suspicious bony lesions.? [id number] osteoarthritic disease.? There is bony erosion in the 1st metacarpal head. ? Soft tissues:? No suspicious soft tissue calcifications.? There is soft tissue swelling. ? ? IMPRESSION:? ? 1. No acute osseous abnormality.? 2. Mild osteoarthritis.? There is bony erosion in the 1st metacarpal head.? Recommend clinical correlation for inflammatory arthritis such as erosive OA. 3. Soft tissue swelling. ? ? Dictated by: Jayne Gutiérrez M.D. on 06/06/2023 at 14:06 ? ? Approved by: Jayne Gutiérrez M.D. on 06/06/2023 at 14:10 ? MDM Narrative Medical decision making narrative: Chief Complaint: hand swelling and pain Multiple etiologies for patient's complaint considered including, but not limited to: DVT although this is less likely as patient is anticoagulated and his edema to the right hand is not circumferential, cellulitis, abscess, flexor tenosynovitis, inflammatory arthritis I have independently reviewed the patient's vital signs and nursing notes as well as prior records if available. Course of Care: Exam with erythema to the dorsum of the right hand without visible or palpable wound. Presume this is most likely cellulitis, low suspicion for DVT as there is proximal spreading erythema and edema to the dorsum of the hand only, there is no circumferential edema. Patient is afebrile, without systemic symptoms of illness, denies fatigue or fever chills. He is not on antibiotics currently. Will treat with cephalexin and doxycycline, topical pain medication to include diclofenac gel, lidocaine cream, oral medication to include hydrocodone as needed. Encouraged him to follow-up with PCP as needed, return to the emergency department for new or worsening symptoms, and if he is not better after 24 hours or if he develops a fever and chills in his worse to come back to the emergency department. Social considerations that may affect disposition: none Questions are addressed and there is agreement with the plan and for follow-up. I consulted with the ED attending physician Dr. Bales as needed for higher level of care considerations and they were available for discussion and recommendations regarding plan of care and diagnostic testing. Patient is appropriate for outpatient management. Discharge Plan Departure Patient Disposition: Home Clinical Impression: Cellulitis Qualifiers: Site of cellulitis: extremity Site of cellulitis of extremity: upper extremity Laterality: right Qualified Code(s): L03.113 - Cellulitis of right upper limb Instructions: DI for Cellulitis -- Adult Activity Restrictions/Additional Instructions: *You have been diagnosed with a skin infection of the right hand called cellulitis. If you do not get better after 24 hours on antibiotics, please come back to the emergency department especially if you are worse or have fever. You should start to get better soon, please stay hydrated, follow up with your primary care provider as needed. Return to the emergency department as needed and try the topical medications I gave you for pain control. The lidocaine cream will cause numbness which may be beneficial for a small period of time for the hand and the diclofenac gel is an anti-inflammatory which will help with swelling, pain and hopefully provide good relief. It was a pleasure to meet you today, I hope you feel better soon *What to do: *Please continue to take your regular medications as directed. [x ] New medication prescriptions sent to your pharmacy: [[facility]] [ ] New medication written as a paper prescription [ ] No new medications given *Please call and schedule follow up with your primary care provider in 2-3 days, at least for an update. Let them know you were seen in the Emergency Department for the above problem. We will electronically transmit a record of today's note if your PCP or specialist is in our system. *If you do not have a primary care provider please contact [phone] to establish care with one of the [facility] primary care providers. *Return to the Emergency Department for worsening symptoms, inability to keep liquids down, fever greater than 101F, chills, or other concerning symptom. Prescriptions: New cephalexin 500 mg capsule 500 mg PO QID 7 Days Qty: 28 0RF doxycycline hyclate 100 mg capsule 100 mg PO BID 7 Days Qty: 14 0RF hydrocodone-acetaminophen 5-325 mg tablet 1 tab PO Q6H PRN (Reason: pain) Qty: 14 0RF diclofenac sodium 1 % gel 2 g topical QID Qty: 100 0RF Rx Instructions: apply to right hand up to 4 times a day as needed for pain control lidocaine 4 % cream 1 applic topical BID Qty: 28 0RF No Action metoprolol tartrate 25 mg Tablet 25 mg PO BID Qty: 180 0RF citalopram 10 mg Tablet 10 mg PO DAILY Qty: 90 0RF spironolactone 25 mg Tablet 25 mg PO DAILY Qty: 90 0RF tamsulosin [Flomax] 0.4 mg Capsule 0.4 mg PO BEDTIME Qty: 90 0RF atorvastatin [Lipitor] 40 mg tablet 40 mg PO QPM Qty: 90 0RF Eliquis 5 mg tablet 5 mg PO BID Qty: 60 0RF losartan 50 MG tablet 25 mg PO QDAY Qty: 90 0RF digoxin 250 mcg (0.25 mg) tablet 250 mcg PO DAILY Qty: 90 0RF Rx Instructions: start on 11/21 Referrals: Alexandro Castillo MD [Primary Care Provider] - Stand Alone Forms: Patient Portal/API <Bernard Bales MD - Last Filed: 06/11/23 12:12> Cosign ED Attending Cosignature Attestation: I was immediately available in the department for consultation. ?This documentation has been reviewed and I agree with assessment and plan. Supervised by Bernard Bales MD
[2023-06-06] MEDS: KETOROLAC 30 MG/ML VIAL 15 MG IM (14:11)
[2023-06-06] MEDS: DOXYCYCLINE HYCLATE 100 MG TABLET PO (14:12)
[2023-06-06] MEDS: HYDROCODONE/ACET 5/325 TABLET 1 TAB PO (14:12)
[2023-06-06] MEDS: cephALEXin 250 MG CAPSULE 500 MG PO (14:12)
[2023-06-06 14:40] VITALS: BP 162/84; PULSE 74; O2SAT 100
== END 2023-06-06 14:45 | disposition home or self-care (01) ==
PROVIDERS: Emergency Provider Nurse Practitioner Critical Care Medicine; PCP Family Medicine
DX: L03.113 Cellulitis of right upper limb (principal)
CPT/HCPCS: 73130; 96372; 99283; 99284; J1885

== ENCOUNTER 2025-03-21 15:30 | Emergency (ER) | payer MEDICARE, OTHER, SELFPAY ==
[2025-03-21] VITALS (8 sets, daily range): BP systolic 128–157; BP diastolic 76–96; PULSE 91–105; RESP 18–23; TEMP 37; O2SAT 95–98; BMI 31.5
--- NOTE | 2025-03-21 15:38 | EKG_ITS ---
[address] [address] Test Date: 2025-03-21 Pat Name: Dustin Tatum Department: Room: Gender: Male Investment Manager: : 1950 Requested By: Order Number: [id number] Reading MD: Manav De Paz MD Measurements Intervals [place] Rate: 95 P: 68 MA: 174 QRS: -4 QRSD: 88 T: 21 QT: 362 QTc: 454 Interpretive Statements Normal sinus rhythm with sinus arrhythmia Anterior infarct , age undetermined Electronically Signed On 03-22-2025 7:28:29 PDT by Manav De Paz MD
--- NOTE | 2025-03-21 15:47 | DI.RAD.S_ITS ---
PROCEDURE: XR CHEST 1V INDICATIONS: Chest Pain TECHNIQUE: One view of the chest was acquired. COMPARISON: [facility], CR, XR CHEST 1V, 11/16/2022, 14:53. [facility], CR, XR CHEST 2V, 09/12/2022, 12:46. [facility], CR, XR CHEST 1V, 11/18/2022, 12:53. FINDINGS: Surgical changes and devices: None. Lungs and pleura: On this semiupright portable chest examination, no large pneumothorax or large pleural effusions are seen. No focal infiltrates are seen. Incidental note is made of an azygos lobe. Mediastinum: Mediastinal contours appear normal. Heart size is normal. Atherosclerotic calcification of the aortic arch is noted. Bones and chest wall: No suspicious bony lesions. Overlying soft tissues appear unremarkable. IMPRESSION: Limited portable chest examination, without a significant cardiopulmonary abnormality identified. Dictated by: Arnoldo Flynn M.D. on 03/21/2025 at 15:37 Approved by: Arnoldo Flynn M.D. on 03/21/2025 at 15:38
--- NOTE | 2025-03-21 15:53 | ED.ARRPALP ---
HPI - Arrhythmia/Palpitations General Chief Complaint: Arrhythmia/Palpitations Stated Complaint: Weakness Time Seen by Provider: 03/21/25 15:52 History of Present Illness HPI narrative: Patient is a 74-year-old male history of atrial fibrillation presenting today with sudden onset of feeling weak and dizzy. He was found to be in SVT with EMS however he spontaneously converted upon arrival to the ED. He says that he was in the kitchen when he suddenly felt weak and dizzy. He had a sit-down he thought it might go away but it just was not going away he felt very flushed in his face. No significant shortness of breath. He now feels significantly better than he did in his in a sinus rhythm on the monitor. No meds were given with EMS. He has no shortness of breath no abdominal pain no nausea or vomiting. Related Data Previous Rx's Medication Instructions Recorded apixaban 5 mg tablet (Eliquis) 5 mg PO BID #60 tabs 11/20/22 atorvastatin 40 mg tablet (Lipitor) 40 mg PO QPM #90 tabs 11/20/22 citalopram 10 mg tablet 10 mg PO DAILY #90 tabs 11/20/22 digoxin 250 mcg (0.25 mg) tablet 250 mcg PO DAILY #90 tabs 11/20/22 losartan 50 mg tablet 25 mg (1/2 x 50 mg) PO QDAY #90 11/20/22 tabs metoprolol tartrate 25 mg tablet 25 mg PO BID #180 tabs 11/20/22 spironolactone 25 mg tablet 25 mg PO DAILY #90 tabs 11/20/22 tamsulosin 0.4 mg capsule (Flomax) 0.4 mg PO BEDTIME #90 caps 11/20/22 diclofenac sodium 1 % topical gel 2 g topical QID #100 grams 06/06/23 hydrocodone 5 mg-acetaminophen 325 1 tab PO Q6H PRN pain #14 tabs 06/06/23 mg tablet lidocaine 4 % topical cream 1 applic topical BID hand pain #28 06/06/23 grams Allergies Allergy/AdvReac Type Severity Reaction Status Date / Time Penicillins Allergy Unknown Verified 06/06/23 12:20 Patient History Medical History Cervical sprain (01/21/03) Essential hypertension (01/21/03) Routine medical exam (03/19/03) Surgical History H/O vasectomy tobacco type: cigarettes alcohol intake frequency: 0-2 drinks per day Exam Initial Vital Signs Initial Vital Signs: Vital Signs Pulse Rate 101 H 03/21/25 15:35 Respiratory Rate 22 03/21/25 15:35 Blood Pressure 154/79 H 03/21/25 15:35 Pulse Oximetry 97 03/21/25 15:35 GENERAL: Alert pleasant 74-year-old male and in no acute distress. HEENT: Head atraumatic,EOMI, pupils reactive, face symmetric, moist mucous membranes CARDIOVASCULAR: Regular rate and rhythm without murmurs, rubs or gallops. RESPIRATORY: Breath sounds equal bilaterally, no wheezes rales or rhonchi. ABDOMEN: Soft, nontender. Normoactive bowel sounds all 4 quadrants. No guarding or rebound. EXTREMITIES: Normal range of motion, no clubbing or edema. Neurovascularly intact NEUROLOGICAL: Alert and oriented x4.Normal gait and speech. Cranial nerves II through XII grossly intact. SKIN: Warm, dry, no laceration, no petechiae, no rashes or lesions. Course Orders Ordered: ED Orders 03/21/25 15:45 Urine Microscopic Stat 03/21/25 15:47 XR chest 1V Stat EKG-12 Lead Stat RT Consult Eval and Treat NOW 03/21/25 16:05 Complete Blood Count AUTO DIFF Stat Comprehensive Metabolic Panel Stat Lactate (Lactic Acid) Stat Lipase Stat Magnesium Stat NT-proBNP (BNP-Adult 18+) Stat PTT Partial Thromboplastin Fred Stat Prothrombin Time INR Stat Troponin & CK Cardiac Panel Stat Vital Signs Vital signs: Vital Signs - 8 hr 03/21/25 15:35 03/21/25 15:35 03/21/25 15:42 Temperature 98.6 F Pulse Rate 101 H 101 H Respiratory Rate 22 18 Blood Pressure 154/79 H 154/79 H Pulse Oximetry 97 97 Oxygen Delivery Method Room Air 03/21/25 16:00 03/21/25 16:00 03/21/25 16:30 Temperature Pulse Rate 105 H 96 H Respiratory Rate Blood Pressure 142/96 H Pulse Oximetry 98 Oxygen Delivery Method Room Air 03/21/25 16:31 03/21/25 16:31 03/21/25 17:00 Temperature Pulse Rate 96 H 92 H Respiratory Rate 21 19 Blood Pressure 128/76 Pulse Oximetry 95 Oxygen Delivery Method Room Air 03/21/25 17:00 Temperature Pulse Rate Respiratory Rate Blood Pressure 141/85 H Pulse Oximetry Oxygen Delivery Method MDM - Arrhythmia/Palpitations Lab Data 03/21/25 16:05 03/21/25 16:05 Labs: Lab Results 03/21/25 03/21/25 Range/Units 15:45 16:05 WBC 14.6 H (4.5-11.0) X10^3/uL RBC 5.22 (4.5-5.9) X10^6/uL Hgb 14.8 (13.5-17.5) g/dL Hct 45.3 (41-53) % MCV 86.7 (80-100) fL MCH 28.4 (26-34) PG MCHC 32.7 (30-36) % RDW 17.4 H (11.6-14.8) % Plt Count 180 (150-400) X10^3/uL Neut % (Auto) 82.0 H (50-75) % Lymph % (Auto) 11.6 L (25-40) % [place] % (Auto) 5.1 (3-14) % Eos % (Auto) 0.3 L (2-4) % Baso % (Auto) 1.0 (0-2) % Neut # (Auto) 91516 H (1805-1804) /uL Lymph # (Auto) 1700 (7223-7432) /uL [place] # (Auto) 700 (0-900) /uL Eos # (Auto) 0 (0-450) /uL Baso # (Auto) 200 H (0-100) /uL PT 10.5 (9.4-12.5) SECONDS INR 0.9 (0.9-1.3) APTT 31 (25.1-36.5) SECONDS Sodium 134 L (137-145) mmol/L Potassium 4.3 (3.4-5.1) mmol/L Chloride 101 (98-107) mmol/L Carbon Dioxide 24 (22-32) mmol/L BUN 10 (9-20) mg/dL Creatinine 0.84 (0.66-1.25) mg/dL Estimated GFR > 60 (>60) mL/min BUN/Creatinine Ratio 11.9 (6-22) Glucose 114 H (70-99) mg/dL Lactate 2.8 H (0.7-2.1) mmol/L Calcium 9.2 (8.4-10.2) mg/dL Magnesium 1.5 L (1.6-2.3) mg/dL Total Bilirubin 0.8 (0.2-1.3) mg/dL AST 33 (17-59) IU/L ALT 29 (<50) IU/L Alkaline Phosphatase 75 (38-126) U/L Total Creatine Kinase 49 L (55-170) U/L Troponin I < 0.012 (0.01-0.034) ng/mL NT-Pro-B Natriuret Pep 570 H (<125) pg/mL Total Protein 7.2 (6.3-8.2) g/dL Albumin 4.2 (3.5-5.0) g/dL Globulin 3.0 (1.7-4.1) g/dL Albumin/Globulin Ratio 1.4 (1.0-2.8) Lipase 51 (23-300) U/L Urine RBC 0-1/hpf (0-5/HPF) Urine WBC 0-1/hpf (0-5/HPF) Ur Squamous Epith Cells 0-1 /hpf (0-5/HPF) Urine Bacteria Occasional (0-1) (None) Ur Culture Indicated? Cult not indicated Vol Urine Centrifuged 10ml (spun) Urine Dip Bedside Urine Glucose Negative Bedside Urine Bilirubin - Negative Bedside Urine Ketone - Negative Urine Specific [place] 1.010 Bedside Urine Occult Blood +/- Bedside Urine pH 6.0 Bedside Urine Protein + 30 Bedside Urine Urobilinogen - Negative Bedside Urine Nitrite - Negative Bedside Urine Leukocytes - Negative Esterase Imaging Data Chest x-ray: Radiologist's Impresson: PROCEDURE: XR CHEST 1V INDICATIONS: Chest Pain TECHNIQUE: One view of the chest was acquired. COMPARISON: [facility], , XR CHEST 1V, 11/16/2022, 14:53. [facility], , XR CHEST 2V, 09/12/2022, 12:46. [facility], , XR CHEST 1V, 11/18/2022, 12:53. FINDINGS: Surgical changes and devices: None. Lungs and pleura: On this semiupright portable chest examination, no large pneumothorax or large pleural effusions are seen. No focal infiltrates are seen. Incidental note is made of an azygos lobe. Mediastinum: Mediastinal contours appear normal. Heart size is normal. Atherosclerotic calcification of the aortic arch is noted. Bones and chest wall: No suspicious bony lesions. Overlying soft tissues appear unremarkable. IMPRESSION: Limited portable chest examination, without a significant cardiopulmonary abnormality identified. Dictated by: Arnoldo Flynn M.D. on 03/21/2025 at 15:37 ECG Data Attestation: I personally reviewed and interpreted this ECG as follows: Interpretation: Normal sinus rhythm rate 95 WA interval 174 QRS [address] changes MDM Narrative Medical decision making narrative: Patient is a 74-year-old male history of atrial fibrillation presents today with an arrhythmia which appeared to be SVT. He self converted upon our arrival. He now feels much better Blood work has been reviewed Mild leukocytosis 14.6 no anemia Electrolytes show sodium of 134 potassium 4.3 chloride 101 carbon dioxide 24 BUN 10 creatinine 0.8 glucose 114 Lactate 2.8 unclear significance Magnesium 1.5 Bilirubin liver enzymes within normal limits Troponin negative BNP 570 Chest x-ray-No acute cardiopulmonary process EKGs normal sinus rhythm no ischemia Patient had an episode of SVT or AFib but self converted upon arrival. Blood work shows some mild leukocytosis unclear significant no evidence of pneumonia lactic acid also slightly elevated at 2.8. Overall he appears well nontoxic no hypoxia. Discharge Plan Departure Patient Disposition: Home Clinical Impression: Sustained SVT Instructions: DI for Paroxysmal Supraventricular Tachycardia Activity Restrictions/Additional Instructions: *You have been diagnosed with SVT *What to do: At this time keep taking all of your medication *Continue to take medications as directed Apixaban 5 mg twice a day--NOT in bag, PLEASE ASK ABOUT THIS, YOU LIKELY NEED IT Amlodipine--in bag Atorvastatin--> not in bag Metoprolol--> unsure allopurinol-- in bag gabapentin-- in bag cholecalciferol-- in bag ferrus sulfate-- in bag *Follow up with your primary care provider in 2-3 days or call [phone] *Return to ER if you should have increasing chest pain palpitations shortness of or any new, worsening or concerning symptoms Prescriptions: No Action metoprolol tartrate 25 mg Tablet 25 mg PO BID Qty: 180 0RF citalopram 10 mg Tablet 10 mg PO DAILY Qty: 90 0RF spironolactone 25 mg Tablet 25 mg PO DAILY Qty: 90 0RF tamsulosin [Flomax] 0.4 mg Capsule 0.4 mg PO BEDTIME Qty: 90 0RF atorvastatin [Lipitor] 40 mg tablet 40 mg PO QPM Qty: 90 0RF Eliquis 5 mg tablet 5 mg PO BID Qty: 60 0RF losartan 50 MG tablet 25 mg PO QDAY Qty: 90 0RF digoxin 250 mcg (0.25 mg) tablet 250 mcg PO DAILY Qty: 90 0RF Rx Instructions: start on 11/21 hydrocodone-acetaminophen 5-325 mg tablet 1 tab PO Q6H PRN (Reason: pain) Qty: 14 0RF diclofenac sodium 1 % gel 2 g topical QID Qty: 100 0RF Rx Instructions: apply to right hand up to 4 times a day as needed for pain control lidocaine 4 % cream 1 applic topical BID Qty: 28 0RF Referrals: Alexandro Castillo MD [Primary Care Provider] - Stand Alone Forms: Patient Portal/API/Survey
[2025-03-21 16:15] LABS: Add Manual Diff / Slide Review NO; Basophils Absolute Auto 200 /uL (0-100); Eosinophils Absolute Auto 0 /uL (0-450); Eosinophils Percent Auto 0.3 % (2-4); Hematocrit 45.3 % (41-53); Hemoglobin 14.8 g/dL (13.5-17.5); Lymphocytes Absolute Auto 1700 /uL (1100-4500); Lymphocytes Percent Auto 11.6 % (25-40); Mean Corpuscular HGB Conc 32.7 % (30-36); Mean Corpuscular Hemoglobin 28.4 PG (26-34); Mean Corpuscular Volume 86.7 fL (80-100); Monocytes Absolute Auto 700 /uL (0-900); Monocytes Percent Auto 5.1 % (3-14); Neutrophils Absolute Auto 11900 /uL (1500-7000); Platelet Count 180 X10^3/uL (150-400); Red Blood Cell Count 5.22 X10^6/uL (4.5-5.9); Red Cell Distribution Width 17.4 % (11.6-14.8); White Blood Cell Count 14.6 X10^3/uL (4.5-11.0)
[2025-03-21 16:21] LABS: INR 0.9 (0.9-1.3); Prothrombin Time 10.5 SECONDS (9.4-12.5)
[2025-03-21 16:21] LABS: Bacteria Urine Occasional (0-1); Culture Indicated Urine Cult Not Indicated; RBC Urine 0-1/HPF (0-5/HPF); Squamous Epithelial Cell Urine 0-1 /HPF (0-5/HPF); Urine Volume 10mL (spun); WBC Urine 0-1/HPF (0-5/HPF)
[2025-03-21 16:23] LABS: PTT Partial Thromboplastin Tim 31 SECONDS (25.1-36.5)
[2025-03-21 16:25] LABS: Lactate (Lactic Acid) 2.8 mmol/L (0.7-2.1)
[2025-03-21 16:26] LABS: Alanine Aminotransferase 29 IU/L (<50); Albumin 4.2 g/dL (3.5-5.0); Albumin Globulin Ratio 1.4 (1.0-2.8); Alkaline Phosphatase 75 U/L (38-126); Aspartate Aminotransferase 33 IU/L (17-59); BUN Creatinine Ratio 11.9 (6-22); Bilirubin Total 0.8 mg/dL (0.2-1.3); Blood Urea Nitrogen 10 mg/dL (9-20); Calcium 9.2 mg/dL (8.4-10.2); Carbon Dioxide 24 mmol/L (22-32); Chloride 101 mmol/L (98-107); Creatine Kinase 49 U/L (55-170); Estimated Glomerular Filt Rate > 60 mL/min (>60); Glucose 114 mg/dL (70-99); HEMOLYSIS < 15 (0-50); Lipase 51 U/L (23-300); Magnesium 1.5 mg/dL (1.6-2.3); Potassium 4.3 mmol/L (3.4-5.1); Sodium 134 mmol/L (137-145); Total Protein 7.2 g/dL (6.3-8.2)
[2025-03-21 16:38] LABS: NT-proBNP (BNP-Adult 18+) 570 pg/mL (<125); Troponin I < 0.012 ng/mL (0.01-0.034)
[2025-03-21 17:47] LABS: Reflexed Lactate in 2 Hours Y
== END 2025-03-21 17:42 | disposition home or self-care (01) ==
PROVIDERS: Emergency Provider Emergency Medicine; PCP Family Medicine
DX: I47.10 Supraventricular tachycardia, unspecified (principal)
CPT/HCPCS: 36415; 71045; 80053; 81003; 81015; 82550; 83605; 83690; 83735; 83880; 84484; 85025; 85610; 85730; 93005; 93010; 99283; 99284